=== PATIENT | female | born 1960 | race Two or more races ===

== ENCOUNTER 2016-03-27 17:21 | Inpatient (IN) | payer MEDICAID ==
[~2016-03-27] VITALS: Ht 157.5 cm; Wt 64.0 kg
[2016-03-27] MEDS ORDERED: Ampicillin/Sulbactam Sod 3 GM in NS 100 ML IV SCH (17:45)
[2016-03-27 18:24] LABS: APPEARANCE,URINE SLIGHTLY CLOUDY; KETONES,URINE 3+ (NEGATIVE); LEUKOCYTE ESTERASE ,URINE 1+ (NEGATIVE); NITRITE,URINE NEGATIVE (NEGATIVE); PH,URINE 7 (4.5-8.0); PROTEIN,URINE 2+ (NEGATIVE); UROBILINOGEN,URINE NORMAL MG/DL (0.0-1.0)
[2016-03-27 18:32] LABS: BASOPHILS % (AUTO) 0.3 % (0.0-2.0); LYMPHOCYTES % (AUTO) 8.6 % (20.0-45.0); MEAN CORPUSCULAR HGB CONC 33.9 G/DL (32.0-36.0); MEAN CORPUSCULAR VOLUME 97 FL (80-99); MEAN PLATELET VOLUME 6.6 FL (6.5-10.1); MONOCYTES % (AUTO) 6.4 % (1.0-10.0); NEUTROPHILS % (AUTO) 84.7 % (45.0-75.0); PLATELET COUNT 164 K/UL (150-450); RED BLOOD COUNT 4.84 M/UL (4.20-5.40); RED CELL DISTRIBUTION WIDTH 11.1 % (11.6-14.8); WHITE BLOOD COUNT 13.2 K/UL (4.8-10.8)
[2016-03-27 18:41] LABS: BACTERIA,URINE FEW /HPF; ICTOTEST NEGATIVE; SQUAMOUS EPITHELIAL CELL,UR MANY /LPF (NONE/OCC)
[2016-03-27] MEDS ORDERED: Unasyn 3gm Inj ONE (18:42)
[2016-03-27 19:05] LABS: TROPONIN I < 0.30 ng/mL (<=0.30)
[2016-03-27 19:09] LABS: ALANINE AMINOTRANSFERASE 30 U/L (3-33); ALBUMIN/GLOBULIN RATIO 1.1 (1.0-2.7); ANION GAP 18 (5-15); ASPARTATE AMINO TRANSFERASE 31 U/L (5-40); CALCIUM 9.6 mg/dL (8.6-10.2); CARBON DIOXIDE 27 mEQ/L (20-30); CHLORIDE 90 mEQ/L (98-107); CREATININE 0.9 mg/dL (0.5-0.9); GLOMERULAR FILTRATION RATE > 60 mL/min (>60); HEMOLYSIS 5; POTASSIUM 2.9 mEQ/L (3.4-4.9); SODIUM 135 mEQ/L (135-145); TOTAL PROTEIN 8.7 g/dL (6.6-8.7)
[2016-03-27 19:19] LABS: CKMB < 1.5 ng/mL (< 3.8)
[2016-03-27 19:23] VITALS: BP 126/62
[2016-03-27 19:31] LABS: BILIRUBIN,DIRECT 0.3 mg/dL (0.1-0.3)
[2016-03-27] MEDS ORDERED: NKM (19:38)
--- NOTE | 2016-03-27 20:50 | Emergency Room Report ---
History of Present Illness General Chief Complaint: Abdominal Pain Source: Patient Present Illness HPI Patient is a 55-year-old female presented after increased abdominal pain and vomiting. Patient reports having recent increased cough and difficulty breathing she had prior history of high cholesterol hypertension. She denied prior history of diabetes. As reported having subjective fever the patient had any hematemesis or bloody stools. She denied any chest pain. She reported having intermittent productive cough Allergies: Coded Allergies: No Known Allergies (Unverified , 03/27/16) Patient History Past Medical History: see triage record Now: No Reviewed Nursing Documentation: PMH: Agreed, PSxH: Agreed Nursing Documentation-PMH Hx Hypertension: Yes - HYPERLIPIDEMIA Review of Systems All Other Systems: negative except mentioned in HPI Physical Exam Vital Signs Date Time Temp Pulse Resp B/P Pulse Ox O2 Delivery O2 Flow Rate FiO2 03/27/16 17:27 101.7 110 26 138/69 96 03/27/16 19:23 Nasal Cannula 2.0 Sp02 EP Interpretation: reviewed, normal General Appearance: normal inspection, alert, GCS 15, moderate distress Head: atraumatic ENT: normal ENT inspection, hearing grossly normal, normal voice Neck: normal inspection, full range of motion, supple, no bony tend Respiratory: normal inspection, no respiratory distress, no retraction, accessory muscle use, wheezing Cardiovascular #1: regular rate, rhythm, no edema Gastrointestinal: normal inspection, normal bowel sounds, non tender, soft, no guarding, no hernia Genitourinary: no CVA tenderness Musculoskeletal: normal inspection, back normal, normal range of motion Neurologic: normal inspection, alert, oriented x3, responsive, copy preparer III-XII nml as tested, motor strength/tone normal, speech normal Psychiatric: normal inspection, judgement/insight normal, mood/affect normal Skin: normal inspection, normal color, no rash Medical Decision Making Diagnostic Impression: Primary Impression: Pneumonia Additional Impressions: Left bundle branch block (LBBB) Febrile illness, acute ER Course Patient presented for abdominal pain. Differential diagnoses included ischemic bowel, appendicitis, perforated viscus, abdominal aortic aneurysm, inferior myocardial infarction, viral gastroenteritis Because of complexity of patient's case laboratory testing and imaging studies were ordered. EKG interpreted by me showed normal sinus rhythm with a left bundle branch block and a prolonged QT interval there was rate of 97 QTC 520 ms. Patient was noted to haveChest x-ray one view interpreted by me Right lower lobe infiltrate on chest x-ray noted have normal mediastinum. The patient given IV fluids as well as IV antibiotics. A troponin was noted to be negative. I given the patient's prolonged time with pain appears unlikely that this is a myocardial event Patient was given medication for fever Dr. gordon was contacted for inpatient management Labs Test 03/27/16 17:55 White Blood Count 13.2 K/UL (4.8-10.8) Red Blood Count 4.84 M/UL (4.20-5.40) Hemoglobin 16.0 G/DL (12.0-16.0) Hematocrit 47.2 % (37.0-47.0) Mean Corpuscular Volume 97 FL (80-99) Mean Corpuscular Hemoglobin 33.0 PG (27.0-31.0) Mean Corpuscular Hemoglobin Concent 33.9 G/DL (32.0-36.0) Red Cell Distribution Width 11.1 % (11.6-14.8) Platelet Count 164 K/UL (150-450) Mean Platelet Volume 6.6 FL (6.5-10.1) Neutrophils (%) (Auto) 84.7 % (45.0-75.0) Lymphocytes (%) (Auto) 8.6 % (20.0-45.0) Monocytes (%) (Auto) 6.4 % (1.0-10.0) Eosinophils (%) (Auto) 0.0 % (0.0-3.0) Basophils (%) (Auto) 0.3 % (0.0-2.0) Urine Color Arlet Urine Appearance Slightly cloudy Urine pH 7 (4.5-8.0) Urine Specific [place] 1.005 (1.005-1.035) Urine Protein 2+ (NEGATIVE) Urine Glucose (UA) Negative (NEGATIVE) Urine Ketones 3+ (NEGATIVE) Urine Occult Blood 2+ (NEGATIVE) Urine Nitrite Negative (NEGATIVE) Urine Bilirubin Negative (NEGATIVE) Urine Ictotest Negative Urine Urobilinogen Normal MG/DL (0.0-1.0) Urine Leukocyte Esterase 1+ (NEGATIVE) Urine RBC 2-4 /HPF (0 - 2) Urine WBC 5-10 /HPF (0 - 2) Urine Squamous Epithelial Cells Many /LPF (NONE/OCC) Urine Bacteria Few /HPF (NONE) Sodium Level 135 mEQ/L (135-145) Potassium Level 2.9 mEQ/L (3.4-4.9) Chloride Level 90 mEQ/L (98-107) Carbon Dioxide Level 27 mEQ/L (20-30) Anion Gap 18 (5-15) Blood Urea Nitrogen 13 mg/dL (7-23) Creatinine 0.9 mg/dL (0.5-0.9) Estimat Glomerular Filtration Rate > 60 mL/min (>60) Glucose Level 138 mg/dL (74-106) Lactic Acid Level 1.10 mmol/L (0.66-2.22) Calcium Level 9.6 mg/dL (8.6-10.2) Total Bilirubin 1.3 mg/dL (0.0-1.2) Direct Bilirubin 0.3 mg/dL (0.1-0.3) Aspartate Amino Transf (AST/SGOT) 31 U/L (5-40) Alanine Aminotransferase (ALT/SGPT) 30 U/L (3-33) Alkaline Phosphatase 112 U/L (35-104) Total Creatine Kinase 94 U/L (26-140) Creatine Kinase MB < 1.5 ng/mL (< 3.8) Creatine Kinase MB Relative Index Troponin I < 0.30 ng/mL (<=0.30) Total Protein 8.7 g/dL (6.6-8.7) Albumin 4.6 g/dL (3.5-5.2) Globulin 4.1 g/dL Albumin/Globulin Ratio 1.1 (1.0-2.7) EKG Diagnostic Results Rhythm: NSR ST Segments: other - left bundle branch block Chest X-Ray Diagnostic Results EP Interpretation: Yes Findings: no effusion, no pneumothorax, no acute cardiopulmonary disease, other - right lower lobe infiltrate Number of Views: 1 Last Vital Signs Date Time Temp Pulse Resp B/P Pulse Ox O2 Delivery O2 Flow Rate FiO2 03/27/16 19:23 101.0 91 23 126/62 95 Nasal Cannula 2.0 Status: unchanged Disposition: ADMITTED INPATIENT Condition: Serious Referrals: [facility] (PCP) Adam De La Torre Mar 27, 2016 20:50
[2016-03-27 21:17] VITALS: BP 113/47
[2016-03-27 22:00] VITALS: BP 141/83
[2016-03-27] MEDS ORDERED: Mylanta II UD 30ml ORAL PRN (22:30)
[2016-03-27] MEDS ORDERED: Morphine Sulfate 2mg/ml Inj IVP PRN (22:30)
[2016-03-27] MEDS ORDERED: Nitroglycerin Subl 0.4mg tab (Bottle Of 25) SL PRN (22:30)
[2016-03-27] MEDS ORDERED: Miralax 17gm pkt ORAL PRN (22:30)
[2016-03-28] VITALS: BP 120/73
[2016-03-28] MEDS: D5 1/2NS 1,000 ML IV SCH ×3 (00:24→18:37)
[2016-03-28] MEDS ORDERED: Zosyn 3.375gm inj ONE (00:41)
[2016-03-28 04:00] VITALS: BP 107/57
[2016-03-28 05:54] LABS: BASOPHILS % (AUTO) 0.5 % (0.0-2.0); EOSINOPHILS % (AUTO) 0.1 % (0.0-3.0); LYMPHOCYTES % (AUTO) 11.2 % (20.0-45.0); MEAN CORPUSCULAR HEMOGLOBIN 33.3 PG (27.0-31.0); MEAN CORPUSCULAR HGB CONC 33.5 G/DL (32.0-36.0); MEAN CORPUSCULAR VOLUME 99 FL (80-99); MEAN PLATELET VOLUME 6.9 FL (6.5-10.1); MONOCYTES % (AUTO) 6.5 % (1.0-10.0); NEUTROPHILS % (AUTO) 81.8 % (45.0-75.0); PLATELET COUNT 154 K/UL (150-450); RED BLOOD COUNT 4.07 M/UL (4.20-5.40); RED CELL DISTRIBUTION WIDTH 10.9 % (11.6-14.8); WHITE BLOOD COUNT 11.3 K/UL (4.8-10.8)
[2016-03-28 06:36] LABS: CARBON DIOXIDE 23 mEQ/L (20-30); CHLORIDE 101 mEQ/L (98-107); POTASSIUM 3.2 mEQ/L (3.4-4.9); SODIUM 140 mEQ/L (135-145)
[2016-03-28 06:37] LABS: ALANINE AMINOTRANSFERASE 21 U/L (3-33); ALBUMIN/GLOBULIN RATIO 0.9 (1.0-2.7); AMYLASE 28 U/L (10-110); ANION GAP 16 (5-15); ASPARTATE AMINO TRANSFERASE 23 U/L (5-40); CALCIUM 8.6 mg/dL (8.6-10.2); CREATININE 0.9 mg/dL (0.5-0.9); GLOMERULAR FILTRATION RATE > 60 mL/min (>60); HEMOLYSIS 2; LIPASE 13 U/L (< 60); TOTAL PROTEIN 7.1 g/dL (6.6-8.7)
[2016-03-28 07:15] LABS: BILIRUBIN,DIRECT 0.3 mg/dL (0.1-0.3)
[2016-03-28 08:00] VITALS: BP 132/64
[2016-03-28] MEDS ORDERED: Heparin 5000 units/ml inj SUBQ SCH (09:00)
--- NOTE | 2016-03-28 11:12 | Diagnostic Imaging Report ---
Indication: Dyspnea Comparison: None A single view chest radiograph was obtained. Findings: Infiltrate suspected at the right lung base. Please correlate clinically. Mild cardio megaly is present. Bones are unremarkable. Impression: Suspected mild right basilar pneumonia. Please correlate clinically
--- NOTE | 2016-03-28 11:53 | History and Physical ---
History of Present Illness General Date patient seen: Mar 28, 2016 Reason for Hospitalization: Abdominal Pain Present Illness HPI 55-year-old female with Hx of HTN, presented after increased abdominal pain and vomiting. Patient reports having recent increased cough and difficulty breathing. She reported having intermittent productive cough. Her cxr showed RLL infiltrate. Her EKG was abnormal as well, therefore she was admitted to [facility]. Allergies: Coded Allergies: No Known Allergies (Unverified , 03/27/16) Medication History Scheduled No Known Medications* (NKM - No Known Medications*), 0 ., (Reported) Patient History Healthcare decision maker Resuscitation status Full Code Advanced Directive on File No Past Medical/Surgical History Past Medical/Surgical History: (1) Hypertension Review of Systems All Other Systems: negative except mentioned in HPI Physical Exam General Appearance: WD/WN, alert Lines, tubes and drains: peripheral, central line HEENT: normocephalic, atraumatic Neck: non-tender, normal alignment Respiratory/Chest: chest wall non-tender, lungs clear Cardiovascular/Chest: normal peripheral pulses, normal rate Abdomen: normal bowel sounds, non tender Genitourinary/Rectal: normal genital exam, normal rectal exam Extremities: normal range of motion 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 Last 24 Hour Vital Signs Date Time Temp Pulse Resp B/P Pulse Ox O2 Delivery O2 Flow Rate FiO2 03/28/16 08:00 98.4 81 22 132/64 90 Room Air 03/28/16 08:00 85 03/28/16 04:00 97.7 68 20 107/57 93 Room Air 03/28/16 03:41 65 03/28/16 00:00 98.1 76 18 120/73 93 Room Air 03/27/16 23:45 82 03/27/16 22:00 99.9 80 14 141/83 93 Room Air 03/27/16 21:31 100.2 82 25 113/47 95 Nasal Cannula 2.0 03/27/16 21:17 100.2 82 25 113/47 95 Nasal Cannula 2.0 03/27/16 20:25 100.2 03/27/16 19:23 101.0 91 23 126/62 95 Nasal Cannula 2.0 03/27/16 17:27 101.7 110 26 138/69 96 Intake and Output 03/27/16 03/28/16 19:00 07:00 Intake Total 1393.75 ml Output Total 0 ml Balance 1393.75 ml IV Total 1393.75 ml Output Urine Total 0 ml Laboratory Tests Test 03/27/16 17:55 03/28/16 04:00 White Blood Count 13.2 K/UL (4.8-10.8) H 11.3 K/UL (4.8-10.8) H Red Blood Count 4.84 M/UL (4.20-5.40) 4.07 M/UL (4.20-5.40) L Hemoglobin 16.0 G/DL (12.0-16.0) 13.6 G/DL (12.0-16.0) Hematocrit 47.2 % (37.0-47.0) H 40.5 % (37.0-47.0) Mean Corpuscular Volume 97 FL (80-99) 99 FL (80-99) Mean Corpuscular Hemoglobin 33.0 PG (27.0-31.0) H 33.3 PG (27.0-31.0) H Mean Corpuscular Hemoglobin Concent 33.9 G/DL (32.0-36.0) 33.5 G/DL (32.0-36.0) Red Cell Distribution Width 11.1 % (11.6-14.8) L 10.9 % (11.6-14.8) L Platelet Count 164 K/UL (150-450) 154 K/UL (150-450) Mean Platelet Volume 6.6 FL (6.5-10.1) 6.9 FL (6.5-10.1) Neutrophils (%) (Auto) 84.7 % (45.0-75.0) H 81.8 % (45.0-75.0) H Lymphocytes (%) (Auto) 8.6 % (20.0-45.0) L 11.2 % (20.0-45.0) L Monocytes (%) (Auto) 6.4 % (1.0-10.0) 6.5 % (1.0-10.0) Eosinophils (%) (Auto) 0.0 % (0.0-3.0) 0.1 % (0.0-3.0) Basophils (%) (Auto) 0.3 % (0.0-2.0) 0.5 % (0.0-2.0) Urine Color Arlet Urine Appearance Slightly cloudy Urine pH 7 (4.5-8.0) Urine Specific [place] 1.005 (1.005-1.035) Urine Protein 2+ (NEGATIVE) H Urine Glucose (UA) Negative (NEGATIVE) Urine Ketones 3+ (NEGATIVE) H Urine Occult Blood 2+ (NEGATIVE) H Urine Nitrite Negative (NEGATIVE) Urine Bilirubin Negative (NEGATIVE) Urine Ictotest Negative Urine Urobilinogen Normal MG/DL (0.0-1.0) Urine Leukocyte Esterase 1+ (NEGATIVE) H Urine RBC 2-4 /HPF (0 - 2) H Urine WBC 5-10 /HPF (0 - 2) H Urine Squamous Epithelial Cells Many /LPF (NONE/OCC) H Urine Bacteria Few /HPF (NONE) Sodium Level 135 mEQ/L (135-145) 140 mEQ/L (135-145) Potassium Level 2.9 mEQ/L (3.4-4.9) L 3.2 mEQ/L (3.4-4.9) L Chloride Level 90 mEQ/L (98-107) L 101 mEQ/L (98-107) Carbon Dioxide Level 27 mEQ/L (20-30) 23 mEQ/L (20-30) Anion Gap 18 (5-15) H 16 (5-15) H Blood Urea Nitrogen 13 mg/dL (7-23) 14 mg/dL (7-23) Creatinine 0.9 mg/dL (0.5-0.9) 0.9 mg/dL (0.5-0.9) Estimat Glomerular Filtration Rate > 60 mL/min (>60) > 60 mL/min (>60) Glucose Level 138 mg/dL (74-106) H 83 mg/dL (74-106) Lactic Acid Level 1.10 mmol/L (0.66-2.22) Calcium Level 9.6 mg/dL (8.6-10.2) 8.6 mg/dL (8.6-10.2) Total Bilirubin 1.3 mg/dL (0.0-1.2) H 1.1 mg/dL (0.0-1.2) Direct Bilirubin 0.3 mg/dL (0.1-0.3) 0.3 mg/dL (0.1-0.3) Aspartate Amino Transf (AST/SGOT) 31 U/L (5-40) 23 U/L (5-40) Alanine Aminotransferase (ALT/SGPT) 30 U/L (3-33) 21 U/L (3-33) Alkaline Phosphatase 112 U/L (35-104) H 134 U/L (35-104) H Total Creatine Kinase 94 U/L (26-140) Creatine Kinase MB < 1.5 ng/mL (< 3.8) Creatine Kinase MB Relative Index Troponin I < 0.30 ng/mL (<=0.30) Total Protein 8.7 g/dL (6.6-8.7) 7.1 g/dL (6.6-8.7) Albumin 4.6 g/dL (3.5-5.2) 3.4 g/dL (3.5-5.2) L Globulin 4.1 g/dL 3.7 g/dL Albumin/Globulin Ratio 1.1 (1.0-2.7) 0.9 (1.0-2.7) L Activated Partial Thromboplast Time 32 SEC (23-33) Amylase Level 28 U/L (10-110) Lipase 13 U/L (< 60) Microbiology Date/Time Source Procedure Growth Status 03/27/16 17:55 Nasal Nares Influenza Types A,B Antigen (MEAGN) - Final Complete Height (Feet): 5 Height (Inches): 2.00 Weight (Pounds): 141 Medications Current Medications Medications (Trade) Dose Ordered Sig/Adwoa Route PRN Reason Start Time Stop Time Status Last Admin Dose Admin Acetaminophen (Tylenol) 650 mg Q4H PRN ORAL fever 03/27/16 22:30 04/26/16 22:29 03/28/16 08:39 Al Hydroxide/Mg Hydroxide (Mylanta II) 30 ml Q6H PRN ORAL dyspepsia 03/27/16 22:30 04/26/16 22:29 Dextrose STAT PRN IV Hypoglycemia 03/27/16 22:30 04/26/16 22:29 Dextrose/Sodium Chloride (D5 0.45% NS) 1,000 ml @ 75 mls/hr [id number] IV 03/27/16 17:40 04/26/16 17:39 03/28/16 06:18 Diphenhydramine HCl (Benadryl) 25 mg Q6H PRN ORAL Itching/Pruritis 03/27/16 22:30 04/26/16 22:29 Heparin Sodium (Porcine) (Heparin 5000 units/ml) 5,000 units EVERY 12 HOURS SUBQ 03/28/16 09:00 04/27/16 08:59 03/28/16 08:25 Morphine Sulfate (Morphine Sulfate) 2 mg Q4H PRN IVP severe Pain (Pain Scale 7-10) 03/27/16 22:30 04/03/16 22:29 Nitroglycerin (Ntg) 0.4 mg Q5M X 3 DOSES PRN SL Prn Chest Pain 03/27/16 22:30 04/26/16 22:29 Ondansetron HCl (Zofran) 4 mg Q6H PRN IVP Nausea & Vomiting 03/27/16 22:30 04/26/16 22:29 Piperacillin Sod/ Tazobactam Sod 3.375 gm/Sodium Chloride 100 ml @ 25 mls/hr Q8H IVPB 03/28/16 00:30 04/04/16 00:29 03/28/16 08:21 Polyethylene Glycol (Miralax) 17 gm HSPRN PRN ORAL Constipation 03/27/16 22:30 04/26/16 22:29 Potassium Chloride (KCl 10mEq/100ml Premix) 100 ml @ 100 mls/hr Q1H IV 03/28/16 11:45 03/28/16 14:44 UNV Temazepam (Restoril) 15 mg HSPRN PRN ORAL Insomnia 03/27/16 22:30 04/03/16 22:29 Assessment/Plan Problem List: (1) Pneumonia ICD Codes: J18.9 - Pneumonia, unspecified organism SNOMED: 726773151 (2) Intractable abdominal pain ICD Codes: R10.9 - Unspecified abdominal pain SNOMED: 47231103, 511591080 (3) Hypertension ICD Codes: I10 - Essential (primary) hypertension SNOMED: 70766141 Qualifiers: Qualified Codes: I10 - Essential (primary) hypertension Assessment/Plan NPO IV antibiotics chest PT check sputum DEBORA PEREZ Mar 28, 2016 11:53
[2016-03-28 12:00] VITALS: BP 124/80
[2016-03-28] MEDS ORDERED: HYDROCHLOROTH12.5 M2 ORAL (12:21)
[2016-03-28] MEDS ORDERED: LIPITOR40 MG ORAL (12:21)
--- NOTE | 2016-03-28 13:00 | GI Initial Consult Note ---
History of Present Illness General Date patient seen: Mar 28, 2016 Time patient seen: 11:00 Reason for Hospitalization: Abdominal Pain Referring physician: DEBORA EUGENE Reason for Consultation: ABDOMINAL PAIN Present Illness HPI Patient is a 55-year-old female presented after increased abdominal pain and vomiting. Patient reports having recent increased cough and difficulty breathing she had prior history of high cholesterol hypertension. She denied prior history of diabetes. As reported having subjective fever the patient had any hematemesis or bloody stools. She denied any chest pain. She reported having intermittent productive cough GI NOTE: HPI as noted above. Pt seen on floor, awake A&Ox4 NAD. Stated she originally had some abdominal pain, but c/o of no pain at this time. Denies any vomiting or diarrhea. Denied any history of any endoscopic procedures. Pt also p/w with leukocytosis and hypoalbuminemia. CXR shows possible right basilar pneumonia. Home Meds Reported Medications Atorvastatin Calcium* (LIPITOR*) 40 Mg Tablet, 40 MG ORAL DAILY, TAB 03/28/16 Hydrochlorothiazide* (HYDROCHLOROTHIAZIDE*) 12.5 Mg Capsule, 12.5 MG ORAL DAILY , CAP 03/28/16 No Known Medications* (NKM - No Known Medications*) ., 0 ., 0 Refills 03/27/16 Med list reviewed/reconciled: Yes Allergies: Coded Allergies: No Known Allergies (Unverified , 03/27/16) Patient History History Provided By: Patient, Medical Record PMH Narrative Past Medical History: see triage record Now: No Reviewed Nursing Documentation: PMH: Agreed, PSxH: Agreed Nursing Documentation-PMH Hx Hypertension: Yes - HYPERLIPIDEMIA Review of Systems All Other Systems: negative except mentioned in HPI Physical Exam Vital Signs Date Time Temp Pulse Resp B/P Pulse Ox O2 Delivery O2 Flow Rate FiO2 03/27/16 17:27 101.7 110 26 138/69 96 03/27/16 19:23 Nasal Cannula 2.0 Sp02 EP Interpretation: reviewed Labs Laboratory Tests Test 03/27/16 17:55 03/28/16 04:00 White Blood Count 13.2 K/UL (4.8-10.8) H 11.3 K/UL (4.8-10.8) H Red Blood Count 4.84 M/UL (4.20-5.40) 4.07 M/UL (4.20-5.40) L Hemoglobin 16.0 G/DL (12.0-16.0) 13.6 G/DL (12.0-16.0) Hematocrit 47.2 % (37.0-47.0) H 40.5 % (37.0-47.0) Mean Corpuscular Volume 97 FL (80-99) 99 FL (80-99) Mean Corpuscular Hemoglobin 33.0 PG (27.0-31.0) H 33.3 PG (27.0-31.0) H Mean Corpuscular Hemoglobin Concent 33.9 G/DL (32.0-36.0) 33.5 G/DL (32.0-36.0) Red Cell Distribution Width 11.1 % (11.6-14.8) L 10.9 % (11.6-14.8) L Platelet Count 164 K/UL (150-450) 154 K/UL (150-450) Mean Platelet Volume 6.6 FL (6.5-10.1) 6.9 FL (6.5-10.1) Neutrophils (%) (Auto) 84.7 % (45.0-75.0) H 81.8 % (45.0-75.0) H Lymphocytes (%) (Auto) 8.6 % (20.0-45.0) L 11.2 % (20.0-45.0) L Monocytes (%) (Auto) 6.4 % (1.0-10.0) 6.5 % (1.0-10.0) Eosinophils (%) (Auto) 0.0 % (0.0-3.0) 0.1 % (0.0-3.0) Basophils (%) (Auto) 0.3 % (0.0-2.0) 0.5 % (0.0-2.0) Urine Color Arlet Urine Appearance Slightly cloudy Urine pH 7 (4.5-8.0) Urine Specific [place] 1.005 (1.005-1.035) Urine Protein 2+ (NEGATIVE) H Urine Glucose (UA) Negative (NEGATIVE) Urine Ketones 3+ (NEGATIVE) H Urine Occult Blood 2+ (NEGATIVE) H Urine Nitrite Negative (NEGATIVE) Urine Bilirubin Negative (NEGATIVE) Urine Ictotest Negative Urine Urobilinogen Normal MG/DL (0.0-1.0) Urine Leukocyte Esterase 1+ (NEGATIVE) H Urine RBC 2-4 /HPF (0 - 2) H Urine WBC 5-10 /HPF (0 - 2) H Urine Squamous Epithelial Cells Many /LPF (NONE/OCC) H Urine Bacteria Few /HPF (NONE) Sodium Level 135 mEQ/L (135-145) 140 mEQ/L (135-145) Potassium Level 2.9 mEQ/L (3.4-4.9) L 3.2 mEQ/L (3.4-4.9) L Chloride Level 90 mEQ/L (98-107) L 101 mEQ/L (98-107) Carbon Dioxide Level 27 mEQ/L (20-30) 23 mEQ/L (20-30) Anion Gap 18 (5-15) H 16 (5-15) H Blood Urea Nitrogen 13 mg/dL (7-23) 14 mg/dL (7-23) Creatinine 0.9 mg/dL (0.5-0.9) 0.9 mg/dL (0.5-0.9) Estimat Glomerular Filtration Rate > 60 mL/min (>60) > 60 mL/min (>60) Glucose Level 138 mg/dL (74-106) H 83 mg/dL (74-106) Lactic Acid Level 1.10 mmol/L (0.66-2.22) Calcium Level 9.6 mg/dL (8.6-10.2) 8.6 mg/dL (8.6-10.2) Total Bilirubin 1.3 mg/dL (0.0-1.2) H 1.1 mg/dL (0.0-1.2) Direct Bilirubin 0.3 mg/dL (0.1-0.3) 0.3 mg/dL (0.1-0.3) Aspartate Amino Transf (AST/SGOT) 31 U/L (5-40) 23 U/L (5-40) Alanine Aminotransferase (ALT/SGPT) 30 U/L (3-33) 21 U/L (3-33) Alkaline Phosphatase 112 U/L (35-104) H 134 U/L (35-104) H Total Creatine Kinase 94 U/L (26-140) Creatine Kinase MB < 1.5 ng/mL (< 3.8) Creatine Kinase MB Relative Index Troponin I < 0.30 ng/mL (<=0.30) Total Protein 8.7 g/dL (6.6-8.7) 7.1 g/dL (6.6-8.7) Albumin 4.6 g/dL (3.5-5.2) 3.4 g/dL (3.5-5.2) L Globulin 4.1 g/dL 3.7 g/dL Albumin/Globulin Ratio 1.1 (1.0-2.7) 0.9 (1.0-2.7) L Activated Partial Thromboplast Time 32 SEC (23-33) Amylase Level 28 U/L (10-110) Lipase 13 U/L (< 60) General Appearance: well appearing, no apparent distress, alert Head: normocephalic EENT: normal ENT inspection Neck: supple Respiratory: other - 2LNC Cardiovascular: tachycardia Gastrointestinal: normal inspection, non tender, soft Neurologic: normal inspection, alert, oriented x3, responsive Psychiatric: normal inspection, judgement/insight normal, memory normal Skin: normal inspection, normal color, no rash Lymphatic: normal inspection, no adenopathy Current Medications Current Medications Medications (Trade) Dose Ordered Sig/Adwoa Route PRN Reason Start Time Stop Time Status Last Admin Dose Admin Acetaminophen (Tylenol) 650 mg Q4H PRN ORAL fever 03/27/16 22:30 04/26/16 22:29 03/28/16 08:39 Al Hydroxide/Mg Hydroxide (Mylanta II) 30 ml Q6H PRN ORAL dyspepsia 03/27/16 22:30 04/26/16 22:29 Dextrose STAT PRN IV Hypoglycemia 03/27/16 22:30 04/26/16 22:29 Dextrose/Sodium Chloride (D5 0.45% NS) 1,000 ml @ 75 mls/hr [id number] IV 03/27/16 17:40 04/26/16 17:39 03/28/16 06:18 Diphenhydramine HCl (Benadryl) 25 mg Q6H PRN ORAL Itching/Pruritis 03/27/16 22:30 04/26/16 22:29 Heparin Sodium (Porcine) (Heparin 5000 units/ml) 5,000 units EVERY 12 HOURS SUBQ 03/28/16 09:00 04/27/16 08:59 03/28/16 08:25 Morphine Sulfate (Morphine Sulfate) 2 mg Q4H PRN IVP severe Pain (Pain Scale 7-10) 03/27/16 22:30 04/03/16 22:29 Nitroglycerin (Ntg) 0.4 mg Q5M X 3 DOSES PRN SL Prn Chest Pain 03/27/16 22:30 04/26/16 22:29 Ondansetron HCl (Zofran) 4 mg Q6H PRN IVP Nausea & Vomiting 03/27/16 22:30 04/26/16 22:29 Piperacillin Sod/ Tazobactam Sod 3.375 gm/Sodium Chloride 100 ml @ 25 mls/hr Q8H IVPB 03/28/16 00:30 04/04/16 00:29 03/28/16 08:21 Polyethylene Glycol (Miralax) 17 gm HSPRN PRN ORAL Constipation 03/27/16 22:30 04/26/16 22:29 Potassium Chloride (KCl 10mEq/100ml Premix) 100 ml @ 100 mls/hr Q1H IVPB 03/28/16 12:30 03/28/16 15:29 03/28/16 12:35 Temazepam (Restoril) 15 mg HSPRN PRN ORAL Insomnia 03/27/16 22:30 04/03/16 22:29 GI: Plan Problems: (1) Hypoalbuminemia (2) Intractable abdominal pain (3) Pneumonia Plan symptomatic treatment at this time ordered Abd U/S zofran prn adv to low fat diet H2 Abx fu labs outpatient GI procedures Discussed with Dr. Johns. Thank you for referring this patient, we will follow. Lynn Wolfe N.P. Mar 28, 2016 13:00
[2016-03-28] MEDS ORDERED: Docusate 100mg cap ORAL SCH (13:30)
--- NOTE | 2016-03-28 14:06 | Consultation ---
Consult Note Consult Note ID CONSULT: Dict# [id number] Assessment/Plan ASSESSMENT: 55 y/o female with: // Probable CAP ?post-influenza - CXR: Suspected mild right basilar pneumonia. - negative: influenza // Recent URI, sick contacts // Sepsis // Leukocytosis - improved // Fever - improved // Abdominal pain, N/V - resolved - US: pending - negative/WNL: LFTs, amylase, lipase // NKDA // Full Code PLAN: - continue zosyn d# . Ok to complete course with PO levaquin at discharge - f/u cultures - f/u abdo US - f/u TTE - monitor CBC, temperatures - monitor CMP d/w family at bedside Thanks! Will follow FRANSICO WHITE Mar 28, 2016 14:06
[2016-03-28 16:03] VITALS: BP 131/64
[2016-03-28] MEDS ORDERED: D5 1/2NS 1000ml IV ONE (16:20)
[2016-03-28] MEDS ORDERED: Tubing IV Secondary IV ONE (16:20)
[2016-03-28] MEDS ORDERED: Nitroglycerin Subl 0.4mg tab (Bottle Of 25) SL PRN (17:30)
[2016-03-28] MEDS ORDERED: Morphine Sulfate 2mg/ml Inj IVP PRN (18:30)
[2016-03-28] MEDS: Docusate 100mg cap ORAL SCH (18:37)
--- NOTE | 2016-03-28 19:13 | Cardiology Progress Note ---
Assessment/Plan Assessment/Plan pneumonia lbbb ? chronicity peluritic chest pian will review echo abx hhn will follwo thank you Objective Last 24 Hour Vital Signs Date Time Temp Pulse Resp B/P Pulse Ox O2 Delivery O2 Flow Rate FiO2 03/28/16 16:03 98.8 88 17 131/64 94 Room Air 03/28/16 12:00 97.7 79 16 124/80 92 Room Air 03/28/16 08:00 98.4 81 22 132/64 90 Room Air 03/28/16 08:00 85 03/28/16 04:00 97.7 68 20 107/57 93 Room Air 03/28/16 03:41 65 03/28/16 00:00 98.1 76 18 120/73 93 Room Air 03/27/16 23:45 82 03/27/16 22:00 99.9 80 14 141/83 93 Room Air 03/27/16 21:31 100.2 82 25 113/47 95 Nasal Cannula 2.0 03/27/16 21:17 100.2 82 25 113/47 95 Nasal Cannula 2.0 03/27/16 20:25 100.2 03/27/16 19:23 101.0 91 23 126/62 95 Nasal Cannula 2.0 Intake and Output 03/27/16 03/28/16 19:00 07:00 Intake Total 1393.75 ml Output Total 0 ml Balance 1393.75 ml IV Total 1393.75 ml Output Urine Total 0 ml Laboratory Tests Test 03/28/16 04:00 White Blood Count 11.3 K/UL (4.8-10.8) H Red Blood Count 4.07 M/UL (4.20-5.40) L Hemoglobin 13.6 G/DL (12.0-16.0) Hematocrit 40.5 % (37.0-47.0) Mean Corpuscular Volume 99 FL (80-99) Mean Corpuscular Hemoglobin 33.3 PG (27.0-31.0) H Mean Corpuscular Hemoglobin Concent 33.5 G/DL (32.0-36.0) Red Cell Distribution Width 10.9 % (11.6-14.8) L Platelet Count 154 K/UL (150-450) Mean Platelet Volume 6.9 FL (6.5-10.1) Neutrophils (%) (Auto) 81.8 % (45.0-75.0) H Lymphocytes (%) (Auto) 11.2 % (20.0-45.0) L Monocytes (%) (Auto) 6.5 % (1.0-10.0) Eosinophils (%) (Auto) 0.1 % (0.0-3.0) Basophils (%) (Auto) 0.5 % (0.0-2.0) Activated Partial Thromboplast Time 32 SEC (23-33) Sodium Level 140 mEQ/L (135-145) Potassium Level 3.2 mEQ/L (3.4-4.9) L Chloride Level 101 mEQ/L (98-107) Carbon Dioxide Level 23 mEQ/L (20-30) Anion Gap 16 (5-15) H Blood Urea Nitrogen 14 mg/dL (7-23) Creatinine 0.9 mg/dL (0.5-0.9) Estimat Glomerular Filtration Rate > 60 mL/min (>60) Glucose Level 83 mg/dL (74-106) Calcium Level 8.6 mg/dL (8.6-10.2) Total Bilirubin 1.1 mg/dL (0.0-1.2) Direct Bilirubin 0.3 mg/dL (0.1-0.3) Aspartate Amino Transf (AST/SGOT) 23 U/L (5-40) Alanine Aminotransferase (ALT/SGPT) 21 U/L (3-33) Alkaline Phosphatase 134 U/L (35-104) H Total Protein 7.1 g/dL (6.6-8.7) Albumin 3.4 g/dL (3.5-5.2) L Globulin 3.7 g/dL Albumin/Globulin Ratio 0.9 (1.0-2.7) L Amylase Level 28 U/L (10-110) Lipase 13 U/L (< 60) Microbiology Date/Time Source Procedure Growth Status 03/27/16 17:55 Nasal Nares Influenza Types A,B Antigen (MEGAN) - Final Complete ROSE MARY NAYAK Mar 28, 2016 19:13
[2016-03-28 20:00] VITALS: BP 132/75
[2016-03-28] MEDS: Heparin 5000 units/ml inj SUBQ SCH (20:55)
[2016-03-28] MEDS ORDERED: Famotidine 20 MG/ 2ML VIAL IVP SCH (21:00)
[2016-03-28] MEDS: Famotidine 20 MG/ 2ML VIAL IVP SCH (22:04)
[2016-03-28] MEDS ORDERED: Miralax 17gm pkt ORAL PRN (22:30)
[2016-03-28] MEDS ORDERED: Mylanta II UD 30ml ORAL PRN (22:30)
--- NOTE | 2016-03-28 22:48 | Consultation ---
DATE OF CONSULTATION: 03/28/2016 INFECTIOUS DISEASE CONSULTATION REQUESTING PHYSICIAN: Benoit Lugo M.D. REASON FOR CONSULTATION: Pneumonia. HISTORY OF PRESENT ILLNESS: This is a 55-year-old, female, admitted on 03/27/2016 with abdominal pain, nausea, vomiting, cough, and subjective fevers. The patient reports recent upper respiratory tract infection from what she had initially improved and is now worsening. Her daughter is also sick with upper respiratory symptoms. An influenza screen is negative and chest x-ray shows a suspected right basilar pneumonia. She meets sepsis criteria. Leukocytosis and fevers are improving. Her abdominal pain, nausea, and vomiting has now resolved. LFTs, amylase, and lipase are within normal limits. An abdominal ultrasound is pending. She has been started on empiric Zosyn and ID now consulted to assist in management. PAST MEDICAL HISTORY: 1. Hypertension. 2. Hyperlipidemia. PAST SURGICAL HISTORY: None. ALLERGIES: No known drug allergies. MEDICATIONS: 1. Zosyn day #1. 2. Pepcid. 3. Subcutaneous heparin. FAMILY HISTORY: Noncontributory. SOCIAL HISTORY: The patient lives locally with family. She has positive sick contacts. REVIEW OF SYSTEMS: As per history of present illness. Ten systems reviewed. All pertinent positives and negatives noted. PHYSICAL EXAMINATION: VITAL SIGNS: Maximum temperature 101.7 degrees, blood pressure 124/80, heart rate in the 70s, respiratory rate 16, and saturating 92% on room air. GENERAL: No apparent distress. Nontoxic appearing. CARDIOVASCULAR: Regular rate and rhythm. No murmurs. PULMONARY: Clear to auscultation bilaterally. ABDOMEN: Bowel sounds present. Soft, nondistended, and nontender. EXTREMITIES: No edema. SKIN: No rash. LABORATORY DATA: White blood cell count 11.3 decreased from 13.2, hemoglobin 13.6, and platelets 154,000. Sodium 140, potassium 3.2, chloride 101, bicarbonate 23, BUN 14, and creatinine 0.9. Lactic acid is 1.1. AST 23, ALT 21, and alkaline phosphatase 134. Total bilirubin is 1.1. Albumin is 3.4. Amylase and lipase are within normal limits. Troponin is negative x1. MICROBIOLOGY: 1. On 03/27/2016, influenza screen negative. 2. On 03/27/2016, blood culture pending. IMAGIN. On 03/27/2016, chest x-ray suspected mild right basilar pneumonia. 2. On 03/28/2016, echocardiogram pending. 3. On 03/28/2016, abdominal ultrasound pending. ASSESSMENT: 1. Probable community-acquired pneumonia, question post influenza. Chest x-ray showed suspected mild right basilar pneumonia and influenza screen is negative. 2. Recent upper respiratory infection and sick contacts, question of influenza. 3. Sepsis. 4. Leukocytosis, improved. 5. Fever, improved. 6. Abdominal pain, nausea and vomiting, now resolved. Liver function tests, amylase and lipase are within normal limits. An abdominal ultrasound is pending. 7. No known drug allergies. 8. Full Code. PLAN: 1. Continue Zosyn day #1 of 7. Okay to complete course with oral Levaquin at discharge. 2. Follow up cultures. 3. Follow up abdominal ultrasound. 4. Follow up echocardiogram. 5. Monitor CBC and temperatures. 6. Monitor CMP. 7. Discussed with family at bedside. Thank you. We will follow. aMrvin oNrth M.D. DR: SHANNON JOB#: [id number] CC: Benoit Lugo M.D.; Fax#: [phone] Montes M.D; Fax#: [phone]
[2016-03-29] VITALS (7 sets, daily range): BP systolic 118–147; BP diastolic 58–87
--- NOTE | 2016-03-29 04:28 | Consultation ---
DATE OF CONSULTATION: 03/28/2016 CARDIOLOGY CONSULTATION CONSULTING PHYSICIAN: Abraham Coates M.D. REFERRING PHYSICIAN: Benoit Lugo M.D. REASON FOR CONSULTATION: Abnormal EKG. HISTORY OF PRESENT ILLNESS: This is a 55-year-old female, who presented to the hospital because of shortness of breath. Basically, she has had a cold with coughing, fever, chills, and not feeling well and eventually presented to emergency room at [facility]. She also has some abdominal pain and vomiting. Her coughing has been increasing and she developed some shortness of breath. She has pain in the left side of her chest when she takes a deep breath or coughs, much more so than when she walks. She has no palpitations. No dizziness or lightheadedness. She uses one pillow. Does have sometimes shortness of breath on exertion. She does occasionally wake up in the middle of the night because of shortness of breath, sits up in bed, and then eventually goes back to bed after taking some few breaths. PAST MEDICAL HISTORY: Negative for diabetes. Positive for high blood pressure. No history of heart attack. She has a high cholesterol. No heart attack, cancer, stroke, hepatitis, or tuberculosis. No asthma. No emphysema. No ulcers. No kidney problems or liver problems, thyroid problems, anemia, or arthritis. ALLERGIES: She has no known drug allergies. SOCIAL HISTORY: She does smoke, but quit that approximately three weeks ago. She drinks alcoholic beverages occasionally. No drug use. REVIEW OF SYSTEMS: Gastrointestinal: She has had nausea and vomiting as mentioned. Genitourinary: Negative. Pulmonary: Positive as mentioned in history of present illness. Constitutional: Positive as mentioned in history of present illness. Neurologic: Negative. PHYSICAL EXAMINATION: GENERAL: Shows to be a middle-aged female, in no respiratory distress. She seems to have some nasal discharge that she constantly clears with tissues. LUNGS: There are some crackles noted in the left base and some rhonchi noted. CARDIOVASCULAR: Regular rate and rhythm. No heaves, thrills, or gallops noted. ABDOMEN: Soft and nontender. Positive bowel sounds. EXTREMITIES: There is no edema. She has varicosities in the lower extremities bilaterally. LABORATORY AND DIAGNOSTIC VALUES: White count of 11.3, down from 13.2 with hemoglobin 13.6, and platelet count of 154,000. Sodium is 140, potassium 3.2, chloride 101, bicarbonate 23, BUN 14, creatinine 0.9, and glucose of 83, down from 138. Lactic acid is 1.1 and alkaline phosphate is 134. Her albumin is 3.4. Her coags, PTT of 32. Urinalysis, 5 to 10 WBCs and 2 to 4 RBCs. Her chest x-ray performed in the emergency room shows right basilar pneumonia being documented. EKG shows left bundle-branch conduction defect with secondary ST segment changes. ASSESSMENT: 1. Pneumonia. 2. Left bundle-branch conduction defect. 3. Chest pain, pleuritic in nature. PLAN: Dr. Lugo, this patient was seen in cardiac consultation. The patient with electrocardiogram as noted. Unfortunately, not known if this is a new finding for her or not. She had been noted to have some kind of abnormalities on the physical examination that the primary care doctor wants to refer her for evaluation by brand marketing intern that was supposed to occur this month, but has not yet been established. The patient has had an echocardiogram, preliminary reports the ejection fraction of 50%. This will be reviewed shortly. Further recommendation depending on the findings. I suspect based on the findings that she may actually have a developing infiltrate on the left side much more so than on the right side based on the findings. I consider repeating chest x-ray for further evaluation, possibly in the next day or so. Dr. Lugo, thank you for allowing me to participate in the care of this patient. Abraham Coates M.D. DR: GITA JOB#: [id number] CC:
[2016-03-29 07:40] LABS: BASOPHILS % (AUTO) 0.3 % (0.0-2.0); EOSINOPHILS % (AUTO) 0.6 % (0.0-3.0); LYMPHOCYTES % (AUTO) 17.3 % (20.0-45.0); MEAN CORPUSCULAR HEMOGLOBIN 32.5 PG (27.0-31.0); MEAN CORPUSCULAR HGB CONC 32.5 G/DL (32.0-36.0); MEAN CORPUSCULAR VOLUME 100 FL (80-99); MEAN PLATELET VOLUME 6.5 FL (6.5-10.1); MONOCYTES % (AUTO) 7.1 % (1.0-10.0); NEUTROPHILS % (AUTO) 74.7 % (45.0-75.0); PLATELET COUNT 191 K/UL (150-450); RED BLOOD COUNT 4.08 M/UL (4.20-5.40); WHITE BLOOD COUNT 7.5 K/UL (4.8-10.8)
[2016-03-29 08:00] LABS: ALANINE AMINOTRANSFERASE 20 U/L (3-33); ANION GAP 16 (5-15); ASPARTATE AMINO TRANSFERASE 22 U/L (5-40); CALCIUM 8.9 mg/dL (8.6-10.2); CARBON DIOXIDE 24 mEQ/L (20-30); CHLORIDE 105 mEQ/L (98-107); CREATININE 0.8 mg/dL (0.5-0.9); GLOMERULAR FILTRATION RATE > 60 mL/min (>60); HEMOLYSIS 0; MAGNESIUM 2.2 mg/dL (1.7-2.5); PHOSPHORUS 2.6 mg/dL (2.5-4.8); POTASSIUM 3.3 mEQ/L (3.4-4.9); SODIUM 145 mEQ/L (135-145)
[2016-03-29 08:18] LABS: CHOLESTEROL/HDL RATIO 2.3 (3.3-4.4)
[2016-03-29] MEDS: D5 1/2NS 1,000 ML IV SCH (08:20)
[2016-03-29] MEDS: Heparin 5000 units/ml inj SUBQ SCH (08:29)
[2016-03-29] MEDS: Famotidine 20 MG/ 2ML VIAL IVP SCH (08:29)
[2016-03-29] MEDS: Docusate 100mg cap ORAL SCH ×3 (08:30→17:11)
[2016-03-29] MEDS ORDERED: Promethazine/Codeine 5ml UD ORAL PRN (09:00)
--- NOTE | 2016-03-29 11:21 | GI Progress Note ---
Assessment/Plan Problems: (1) Hypoalbuminemia ICD Codes: E88.09 - Other disorders of plasma-protein metabolism, not elsewhere classified SNOMED: 734335372 (2) Intractable abdominal pain ICD Codes: R10.9 - Unspecified abdominal pain SNOMED: 18103576, 872888668 (3) Febrile illness, acute ICD Codes: R50.9 - Fever, unspecified SNOMED: 599458975 (4) Pneumonia ICD Codes: J18.9 - Pneumonia, unspecified organism SNOMED: 290735124 Status: unchanged Status Narrative Discussed with Dr. Johns. Assessment/Plan symptomatic treatment at this time fu Abd U/S zofran prn low fat diet H2 Abx fu labs outpatient GI procedures Subjective Gastrointestinal/Abdominal: Reports: no symptoms Objective Last 24 Hour Vital Signs Date Time Temp Pulse Resp B/P Pulse Ox O2 Delivery O2 Flow Rate FiO2 03/29/16 08:38 98.2 80 20 142/77 92 Room Air 03/29/16 04:00 97.9 71 18 128/78 95 Room Air 03/29/16 00:00 98.1 78 20 118/58 96 Room Air 03/28/16 21:53 98.8 03/28/16 20:00 99.9 90 21 132/75 94 Room Air 03/28/16 16:03 98.8 88 17 131/64 94 Room Air 03/28/16 12:00 97.7 79 16 124/80 92 Room Air Intake and Output 03/28/16 03/29/16 19:00 07:00 Intake Total 1580 ml 1285 ml Balance 1580 ml 1285 ml Intake Oral 830 ml 325 ml IV Total 750 ml 960 ml # Voids 2 2 # Bowel Movements 1 Laboratory Tests Test 03/29/16 05:10 White Blood Count 7.5 K/UL (4.8-10.8) Red Blood Count 4.08 M/UL (4.20-5.40) L Hemoglobin 13.2 G/DL (12.0-16.0) Hematocrit 40.8 % (37.0-47.0) Mean Corpuscular Volume 100 FL (80-99) H Mean Corpuscular Hemoglobin 32.5 PG (27.0-31.0) H Mean Corpuscular Hemoglobin Concent 32.5 G/DL (32.0-36.0) Red Cell Distribution Width 11.0 % (11.6-14.8) L Platelet Count 191 K/UL (150-450) Mean Platelet Volume 6.5 FL (6.5-10.1) Neutrophils (%) (Auto) 74.7 % (45.0-75.0) Lymphocytes (%) (Auto) 17.3 % (20.0-45.0) L Monocytes (%) (Auto) 7.1 % (1.0-10.0) Eosinophils (%) (Auto) 0.6 % (0.0-3.0) Basophils (%) (Auto) 0.3 % (0.0-2.0) Sodium Level 145 mEQ/L (135-145) Potassium Level 3.3 mEQ/L (3.4-4.9) L Chloride Level 105 mEQ/L (98-107) Carbon Dioxide Level 24 mEQ/L (20-30) Anion Gap 16 (5-15) H Blood Urea Nitrogen 7 mg/dL (7-23) Creatinine 0.8 mg/dL (0.5-0.9) Estimat Glomerular Filtration Rate > 60 mL/min (>60) Glucose Level 112 mg/dL (74-106) H Calcium Level 8.9 mg/dL (8.6-10.2) Phosphorus Level 2.6 mg/dL (2.5-4.8) Magnesium Level 2.2 mg/dL (1.7-2.5) Total Bilirubin 0.6 mg/dL (0.0-1.2) Aspartate Amino Transf (AST/SGOT) 22 U/L (5-40) Alanine Aminotransferase (ALT/SGPT) 20 U/L (3-33) Alkaline Phosphatase 134 U/L (35-104) H Pro-B-Type Natriuretic Peptide 567 pg/mL (0-125) H Total Protein 7.0 g/dL (6.6-8.7) Albumin 3.5 g/dL (3.5-5.2) Globulin 3.5 g/dL Albumin/Globulin Ratio 1.0 (1.0-2.7) Triglycerides Level 172 mg/dL (< 150) H Cholesterol Level 115 mg/dL (< 200) LDL Cholesterol 32 mg/dL (60-99) L HDL Cholesterol 49 mg/dL (> 60) Cholesterol/HDL Ratio 2.3 (3.3-4.4) L Height (Feet): 5 Height (Inches): 2.00 Weight (Pounds): 141 General Appearance: no apparent distress, alert Cardiovascular: normal rate Respiratory/Chest: normal breath sounds, no respiratory distress Abdominal Exam: normal bowel sounds, non tender, soft Extremities: normal range of motion Lynn Wolfe N.P. Mar 29, 2016 11:21
--- NOTE | 2016-03-29 11:27 | Diagnostic Imaging Report ---
Indications: Chest pain Technique: Portable AP chest Findings: Comparison: 03/27/16 Cardiomegaly, right lung base patchy opacity persist, unchanged. No new abnormality identified. IMPRESSION: No change from 2 days prior
--- NOTE | 2016-03-29 17:42 | Infectious Diseases Prog Note ---
Assessment/Plan Assessment/Plan ASSESSMENT: 55 y/o female with: // Probable CAP ?post-influenza - CXR 03/29: Suspected mild right basilar pneumonia, unchanged - negative: influenza // Recent URI, sick contacts // Sepsis SP // Leukocytosis - resolved // Fever - resolved // Abdominal pain, N/V - resolved - US: pending - negative/WNL: LFTs, amylase, lipase // NKDA // Full Code PLAN: - ok to DC on PO levquin x5 day from ID standpoint. Will continue zosyn d# 2 / 7 while still inpt - f/u cultures - f/u abdo US - f/u TTE - monitor CBC, temperatures - monitor CMP Subjective Allergies: Coded Allergies: No Known Allergies (Unverified , 03/27/16) Subjective fevers resolved Objective Vital Signs Last 24 Hour Vital Signs Date Time Temp Pulse Resp B/P Pulse Ox O2 Delivery O2 Flow Rate FiO2 03/29/16 16:32 99.0 82 20 140/84 97 Room Air 03/29/16 16:00 99.9 88 21 139/87 96 Room Air 03/29/16 12:08 97.7 87 20 135/84 94 Room Air 03/29/16 08:38 98.2 80 20 142/77 92 Room Air 03/29/16 04:00 97.9 71 18 128/78 95 Room Air 03/29/16 00:00 98.1 78 20 118/58 96 Room Air 03/28/16 21:53 98.8 03/28/16 20:00 99.9 90 21 132/75 94 Room Air Height (Feet): 5 Height (Inches): 2.00 Weight (Pounds): 141 General Appearance: no acute distress Respiratory/Chest: no respiratory distress Cardiovascular: normal rate, regular rhythm Abdomen: normal bowel sounds, soft, non tender, non distended Microbiology Date/Time Source Procedure Growth Status 03/27/16 18:00 Blood Blood Culture - Preliminary NO GROWTH AFTER 24 HOURS Resulted 03/27/16 17:45 Blood Blood Culture - Preliminary NO GROWTH AFTER 24 HOURS Resulted 03/27/16 17:55 Nasal Nares Influenza Types A,B Antigen (MEGAN) - Final Complete Laboratory Tests Test 03/29/16 05:10 White Blood Count 7.5 K/UL (4.8-10.8) Red Blood Count 4.08 M/UL (4.20-5.40) L Hemoglobin 13.2 G/DL (12.0-16.0) Hematocrit 40.8 % (37.0-47.0) Mean Corpuscular Volume 100 FL (80-99) H Mean Corpuscular Hemoglobin 32.5 PG (27.0-31.0) H Mean Corpuscular Hemoglobin Concent 32.5 G/DL (32.0-36.0) Red Cell Distribution Width 11.0 % (11.6-14.8) L Platelet Count 191 K/UL (150-450) Mean Platelet Volume 6.5 FL (6.5-10.1) Neutrophils (%) (Auto) 74.7 % (45.0-75.0) Lymphocytes (%) (Auto) 17.3 % (20.0-45.0) L Monocytes (%) (Auto) 7.1 % (1.0-10.0) Eosinophils (%) (Auto) 0.6 % (0.0-3.0) Basophils (%) (Auto) 0.3 % (0.0-2.0) Sodium Level 145 mEQ/L (135-145) Potassium Level 3.3 mEQ/L (3.4-4.9) L Chloride Level 105 mEQ/L (98-107) Carbon Dioxide Level 24 mEQ/L (20-30) Anion Gap 16 (5-15) H Blood Urea Nitrogen 7 mg/dL (7-23) Creatinine 0.8 mg/dL (0.5-0.9) Estimat Glomerular Filtration Rate > 60 mL/min (>60) Glucose Level 112 mg/dL (74-106) H Calcium Level 8.9 mg/dL (8.6-10.2) Phosphorus Level 2.6 mg/dL (2.5-4.8) Magnesium Level 2.2 mg/dL (1.7-2.5) Total Bilirubin 0.6 mg/dL (0.0-1.2) Aspartate Amino Transf (AST/SGOT) 22 U/L (5-40) Alanine Aminotransferase (ALT/SGPT) 20 U/L (3-33) Alkaline Phosphatase 134 U/L (35-104) H Pro-B-Type Natriuretic Peptide 567 pg/mL (0-125) H Total Protein 7.0 g/dL (6.6-8.7) Albumin 3.5 g/dL (3.5-5.2) Globulin 3.5 g/dL Albumin/Globulin Ratio 1.0 (1.0-2.7) Triglycerides Level 172 mg/dL (< 150) H Cholesterol Level 115 mg/dL (< 200) LDL Cholesterol 32 mg/dL (60-99) L HDL Cholesterol 49 mg/dL (> 60) Cholesterol/HDL Ratio 2.3 (3.3-4.4) L Current Medications Medications (Trade) Dose Ordered Sig/Adwoa Route PRN Reason Start Time Stop Time Status Last Admin Dose Admin Acetaminophen (Tylenol) 650 mg Q4H PRN ORAL fever 03/28/16 18:30 04/27/16 18:29 03/28/16 20:54 Al Hydroxide/Mg Hydroxide (Mylanta II) 30 ml Q6H PRN ORAL dyspepsia 03/28/16 22:30 04/27/16 22:29 Dextrose (Dextrose 50%) STAT PRN IV Hypoglycemia 03/28/16 22:30 04/27/16 22:29 Diphenhydramine HCl (Benadryl) 25 mg Q6H PRN ORAL Itching/Pruritis 03/28/16 22:30 04/27/16 22:29 Docusate Sodium (Colace) 100 mg THREE TIMES A DAY ORAL 03/28/16 18:00 04/27/16 17:59 03/29/16 12:33 Famotidine (Pepcid I.v.) 20 mg Q12HR IVP 03/28/16 21:00 04/27/16 20:59 03/29/16 08:29 Heparin Sodium (Porcine) (Heparin 5000 units/ml) 5,000 units EVERY 12 HOURS SUBQ 03/28/16 21:00 04/27/16 20:59 03/29/16 08:29 Morphine Sulfate (Morphine Sulfate) 2 mg Q4H PRN IVP severe Pain (Pain Scale 7-10) 03/28/16 18:30 04/04/16 18:29 Nitroglycerin (Ntg) 0.4 mg Q5M X 3 DOSES PRN SL Prn Chest Pain 03/28/16 17:30 04/27/16 17:29 Ondansetron HCl (Zofran) 4 mg Q6H PRN IVP Nausea & Vomiting 03/28/16 22:30 04/27/16 22:29 Piperacillin Sod/ Tazobactam Sod/ Sodium Chloride (Zosyn/Sodium Chloride 100ml bag) 100 ml @ 25 mls/hr Q8H IVPB 03/29/16 00:30 04/05/16 00:29 03/29/16 17:09 Polyethylene Glycol (Miralax) 17 gm HSPRN PRN ORAL Constipation 03/28/16 22:30 04/27/16 22:29 Promethazine HCl/ Codeine (Phenergan with Codeine) 5 ml Q4H PRN ORAL For Cough 03/29/16 09:00 04/28/16 08:59 03/29/16 10:24 Temazepam (Restoril) 15 mg HSPRN PRN ORAL Insomnia 03/28/16 22:30 04/04/16 22:29 FRANSICO WHITE Mar 29, 2016 17:42
--- NOTE | 2016-03-29 17:51 | Cardiology Report ---
APPROVED REPORT EKG Measurement Heart [id number] Normal sinus rhythm Left bundle branch block Abnormal ECG
--- NOTE | 2016-03-29 18:17 | Pulmonology Progress Note ---
Assessment/Plan Problems: (1) Pneumonia (2) Ventricular mural thrombus (3) Left bundle branch block (4) Hypertension (5) Intractable abdominal pain Assessment/Plan Iv antibiotics d/w , will be started on Heparin and coumadin continue antibiotics f/u sputum Subjective ROS Limited/Unobtainable: No Interval Events: doing better Allergies: Coded Allergies: No Known Allergies (Unverified , 03/27/16) Objective Last 24 Hour Vital Signs Date Time Temp Pulse Resp B/P Pulse Ox O2 Delivery O2 Flow Rate FiO2 03/29/16 16:32 99.0 82 20 140/84 97 Room Air 03/29/16 16:00 99.9 88 21 139/87 96 Room Air 03/29/16 12:08 97.7 87 20 135/84 94 Room Air 03/29/16 08:38 98.2 80 20 142/77 92 Room Air 03/29/16 04:00 97.9 71 18 128/78 95 Room Air 03/29/16 00:00 98.1 78 20 118/58 96 Room Air 03/28/16 21:53 98.8 03/28/16 20:00 99.9 90 21 132/75 94 Room Air Intake and Output 03/28/16 03/29/16 19:00 07:00 Intake Total 1580 ml 1285 ml Balance 1580 ml 1285 ml Intake Oral 830 ml 325 ml IV Total 750 ml 960 ml # Voids 2 2 # Bowel Movements 1 General Appearance: WD/WN HEENT: normocephalic, atraumatic Respiratory/Chest: chest wall non-tender, lungs clear Abdomen: normal bowel sounds, no organomegaly Extremities: no cyanosis Neurologic/Psychiatric: supervisor shaving and splitting II-XII grossly normal Microbiology Date/Time Source Procedure Growth Status 03/27/16 18:00 Blood Blood Culture - Preliminary NO GROWTH AFTER 24 HOURS Resulted 03/27/16 17:45 Blood Blood Culture - Preliminary NO GROWTH AFTER 24 HOURS Resulted 03/27/16 17:55 Nasal Nares Influenza Types A,B Antigen (MEGAN) - Final Complete Laboratory Tests 03/29/16 05:10: White Blood Count 7.5, Red Blood Count 4.08L, Hemoglobin 13.2, Hematocrit 40.8, Mean Corpuscular Volume 100H, Mean Corpuscular Hemoglobin 32.5H, Mean Corpuscular Hemoglobin Concent 32.5, Red Cell Distribution Width 11.0L, Platelet Count 191, Mean Platelet Volume 6.5, Neutrophils (%) (Auto) 74.7, Lymphocytes (%) (Auto) 17.3L, Monocytes (%) (Auto) 7.1, Eosinophils (%) (Auto) 0.6, Basophils (%) (Auto) 0.3, Sodium Level 145, Potassium Level 3.3L, Chloride Level 105, Carbon Dioxide Level 24, Anion Gap 16H, Blood Urea Nitrogen 7, Creatinine 0.8, Estimat Glomerular Filtration Rate > 60, Glucose Level 112H, Calcium Level 8.9, Phosphorus Level 2.6, Magnesium Level 2.2, Total Bilirubin 0.6, Aspartate Amino Transf (AST/SGOT) 22, Alanine Aminotransferase (ALT/SGPT) 20, Alkaline Phosphatase 134H, Pro-B-Type Natriuretic Peptide 567H, Total Protein 7.0, Albumin 3.5, Globulin 3.5, Albumin/Globulin Ratio 1.0, Triglycerides Level 172H, Cholesterol Level 115, LDL Cholesterol 32L, HDL Cholesterol 49, Cholesterol/HDL Ratio 2.3L Current Medications Medications (Trade) Dose Ordered Sig/Adwoa Route PRN Reason Start Time Stop Time Status Last Admin Dose Admin Acetaminophen (Tylenol) 650 mg Q4H PRN ORAL fever 03/28/16 18:30 04/27/16 18:29 03/28/16 20:54 Al Hydroxide/Mg Hydroxide (Mylanta II) 30 ml Q6H PRN ORAL dyspepsia 03/28/16 22:30 04/27/16 22:29 Dextrose (Dextrose 50%) STAT PRN IV Hypoglycemia 03/28/16 22:30 04/27/16 22:29 Diphenhydramine HCl (Benadryl) 25 mg Q6H PRN ORAL Itching/Pruritis 03/28/16 22:30 04/27/16 22:29 Docusate Sodium (Colace) 100 mg THREE TIMES A DAY ORAL 03/28/16 18:00 04/27/16 17:59 03/29/16 12:33 Famotidine (Pepcid I.v.) 20 mg Q12HR IVP 03/28/16 21:00 04/27/16 20:59 03/29/16 08:29 Heparin Sodium (Porcine) (Heparin 5000 units/ml) 5,000 units EVERY 12 HOURS SUBQ 03/28/16 21:00 04/27/16 20:59 03/29/16 08:29 Morphine Sulfate (Morphine Sulfate) 2 mg Q4H PRN IVP severe Pain (Pain Scale 7-10) 03/28/16 18:30 04/04/16 18:29 Nitroglycerin (Ntg) 0.4 mg Q5M X 3 DOSES PRN SL Prn Chest Pain 03/28/16 17:30 04/27/16 17:29 Ondansetron HCl (Zofran) 4 mg Q6H PRN IVP Nausea & Vomiting 03/28/16 22:30 04/27/16 22:29 Piperacillin Sod/ Tazobactam Sod/ Sodium Chloride (Zosyn/Sodium Chloride 100ml bag) 100 ml @ 25 mls/hr Q8H IVPB 03/29/16 00:30 04/05/16 00:29 03/29/16 17:09 Polyethylene Glycol (Miralax) 17 gm HSPRN PRN ORAL Constipation 03/28/16 22:30 04/27/16 22:29 Promethazine HCl/ Codeine (Phenergan with Codeine) 5 ml Q4H PRN ORAL For Cough 03/29/16 09:00 04/28/16 08:59 03/29/16 10:24 Temazepam (Restoril) 15 mg HSPRN PRN ORAL Insomnia 03/28/16 22:30 04/04/16 22:29 DEBORA PEREZ Mar 29, 2016 18:17
--- NOTE | 2016-03-29 18:24 | Cardiology Progress Note ---
Assessment/Plan Assessment/Plan 1. Pneumonia. 2. Left bundle-branch conduction defect. 3. Chest pain, pleuritic in nature. 4. Increased apical echoes on tranthoracic echo thrombus cannot be excluded echo personally reviewed remains difficult to rule out apical thrombus the risk of cva with a possible untreated apical LV thrombus is much higher and potentially more devastating than the risk of anticoagualtion it is my opion that she should be temporarily treated with anticoagualtion as outpt she will need to have a contrast echo to further evaluate the apical area adn to see if need sto continue anticoagualtion. contrast echo is not avaialbe at this hospital i have discussed this with pt and her family at bedside she has not had any bleeding anywhere i have explained need to have fu with gravity meter observer and the issue with interaction with food and other meds to pt and dtr at bedside adn the need to be vigilant to avoid fall and to look for blood form any orifice and to go to e.r. if occurs d/w dr hooper Subjective Cardiovascular: Denies: chest pain, lightheadedness Respiratory: Reports: cough, shortness of breath Gastrointestinal/Abdominal: Denies: abdominal pain Genitourinary: Denies: burning Objective Last 24 Hour Vital Signs Date Time Temp Pulse Resp B/P Pulse Ox O2 Delivery O2 Flow Rate FiO2 03/29/16 16:32 99.0 82 20 140/84 97 Room Air 03/29/16 16:00 99.9 88 21 139/87 96 Room Air 03/29/16 12:08 97.7 87 20 135/84 94 Room Air 03/29/16 08:38 98.2 80 20 142/77 92 Room Air 03/29/16 04:00 97.9 71 18 128/78 95 Room Air 03/29/16 00:00 98.1 78 20 118/58 96 Room Air 03/28/16 21:53 98.8 03/28/16 20:00 99.9 90 21 132/75 94 Room Air General Appearance: no apparent distress, alert Neck: no JVD Cardiovascular: normal rate, regular rhythm Respiratory/Chest: rhonchi - left, expiratory wheezing Abdomen: normal bowel sounds, non tender, soft Extremities: no swelling Intake and Output 03/28/16 03/29/16 19:00 07:00 Intake Total 1580 ml 1285 ml Balance 1580 ml 1285 ml Intake Oral 830 ml 325 ml IV Total 750 ml 960 ml # Voids 2 2 # Bowel Movements 1 Laboratory Tests Test 03/29/16 05:10 White Blood Count 7.5 K/UL (4.8-10.8) Red Blood Count 4.08 M/UL (4.20-5.40) L Hemoglobin 13.2 G/DL (12.0-16.0) Hematocrit 40.8 % (37.0-47.0) Mean Corpuscular Volume 100 FL (80-99) H Mean Corpuscular Hemoglobin 32.5 PG (27.0-31.0) H Mean Corpuscular Hemoglobin Concent 32.5 G/DL (32.0-36.0) Red Cell Distribution Width 11.0 % (11.6-14.8) L Platelet Count 191 K/UL (150-450) Mean Platelet Volume 6.5 FL (6.5-10.1) Neutrophils (%) (Auto) 74.7 % (45.0-75.0) Lymphocytes (%) (Auto) 17.3 % (20.0-45.0) L Monocytes (%) (Auto) 7.1 % (1.0-10.0) Eosinophils (%) (Auto) 0.6 % (0.0-3.0) Basophils (%) (Auto) 0.3 % (0.0-2.0) Sodium Level 145 mEQ/L (135-145) Potassium Level 3.3 mEQ/L (3.4-4.9) L Chloride Level 105 mEQ/L (98-107) Carbon Dioxide Level 24 mEQ/L (20-30) Anion Gap 16 (5-15) H Blood Urea Nitrogen 7 mg/dL (7-23) Creatinine 0.8 mg/dL (0.5-0.9) Estimat Glomerular Filtration Rate > 60 mL/min (>60) Glucose Level 112 mg/dL (74-106) H Calcium Level 8.9 mg/dL (8.6-10.2) Phosphorus Level 2.6 mg/dL (2.5-4.8) Magnesium Level 2.2 mg/dL (1.7-2.5) Total Bilirubin 0.6 mg/dL (0.0-1.2) Aspartate Amino Transf (AST/SGOT) 22 U/L (5-40) Alanine Aminotransferase (ALT/SGPT) 20 U/L (3-33) Alkaline Phosphatase 134 U/L (35-104) H Pro-B-Type Natriuretic Peptide 567 pg/mL (0-125) H Total Protein 7.0 g/dL (6.6-8.7) Albumin 3.5 g/dL (3.5-5.2) Globulin 3.5 g/dL Albumin/Globulin Ratio 1.0 (1.0-2.7) Triglycerides Level 172 mg/dL (< 150) H Cholesterol Level 115 mg/dL (< 200) LDL Cholesterol 32 mg/dL (60-99) L HDL Cholesterol 49 mg/dL (> 60) Cholesterol/HDL Ratio 2.3 (3.3-4.4) L Microbiology Date/Time Source Procedure Growth Status 03/27/16 18:00 Blood Blood Culture - Preliminary NO GROWTH AFTER 24 HOURS Resulted 03/27/16 17:45 Blood Blood Culture - Preliminary NO GROWTH AFTER 24 HOURS Resulted 03/27/16 17:55 Nasal Nares Influenza Types A,B Antigen (MEGAN) - Final Complete ROSE MARY NAYAK Mar 29, 2016 18:24
[2016-03-29] MEDS ORDERED: Heparin 5000 units/ml inj IV ONE (19:00)
[2016-03-29 19:04] LABS: BASOPHILS % (AUTO) 0.4 % (0.0-2.0); EOSINOPHILS % (AUTO) 0.4 % (0.0-3.0); LYMPHOCYTES % (AUTO) 25.8 % (20.0-45.0); MEAN CORPUSCULAR HEMOGLOBIN 33.3 PG (27.0-31.0); MEAN CORPUSCULAR HGB CONC 33.9 G/DL (32.0-36.0); MEAN CORPUSCULAR VOLUME 98 FL (80-99); MEAN PLATELET VOLUME 6.8 FL (6.5-10.1); NEUTROPHILS % (AUTO) 66.4 % (45.0-75.0); PLATELET COUNT 216 K/UL (150-450); RED CELL DISTRIBUTION WIDTH 11.5 % (11.6-14.8); WHITE BLOOD COUNT 7.6 K/UL (4.8-10.8)
[2016-03-29 19:15] LABS: PROTHROMBIN TIME 9.7 SEC (9.30-11.50)
[2016-03-29] MEDS ORDERED: Warfarin Sodium 7.5mg ORAL ONE (20:30)
[2016-03-30 00:06] VITALS: BP 161/86
[2016-03-30] MEDS: Heparin 25,000u/D5W 500ml 500 ML IV SCH ×2 (00:47→20:16)
[2016-03-30] MEDS: Famotidine 20 MG/ 2ML VIAL IVP SCH ×3 (00:59→20:15)
[2016-03-30 04:05] VITALS: BP 151/92
[2016-03-30 04:31] LABS: BASOPHILS % (AUTO) 0.6 % (0.0-2.0); EOSINOPHILS % (AUTO) 0.7 % (0.0-3.0); LYMPHOCYTES % (AUTO) 26.5 % (20.0-45.0); MEAN CORPUSCULAR HEMOGLOBIN 32.7 PG (27.0-31.0); MEAN CORPUSCULAR HGB CONC 31.8 G/DL (32.0-36.0); MEAN CORPUSCULAR VOLUME 103 FL (80-99); MEAN PLATELET VOLUME 6.7 FL (6.5-10.1); MONOCYTES % (AUTO) 6.8 % (1.0-10.0); NEUTROPHILS % (AUTO) 65.5 % (45.0-75.0); PLATELET COUNT 226 K/UL (150-450); RED BLOOD COUNT 4.11 M/UL (4.20-5.40); RED CELL DISTRIBUTION WIDTH 13.1 % (11.6-14.8); WHITE BLOOD COUNT 6.9 K/UL (4.8-10.8)
[2016-03-30 04:44] LABS: PROTHROMBIN TIME 10.2 SEC (9.30-11.50)
[2016-03-30 04:54] LABS: ALANINE AMINOTRANSFERASE 21 U/L (3-33); ALBUMIN/GLOBULIN RATIO 0.8 (1.0-2.7); ANION GAP 14 (5-15); ASPARTATE AMINO TRANSFERASE 18 U/L (5-40); CALCIUM 8.8 mg/dL (8.6-10.2); CARBON DIOXIDE 23 mEQ/L (20-30); CHLORIDE 106 mEQ/L (98-107); CREATININE 0.7 mg/dL (0.5-0.9); GLOMERULAR FILTRATION RATE > 60 mL/min (>60); HEMOLYSIS 2; MAGNESIUM 1.9 mg/dL (1.7-2.5); PHOSPHORUS 3.2 mg/dL (2.5-4.8); POTASSIUM 3.5 mEQ/L (3.4-4.9); SODIUM 143 mEQ/L (135-145); TOTAL PROTEIN 7.1 g/dL (6.6-8.7)
[2016-03-30 06:13] LABS: ERYTHROCYTE SEDIMENTATION RATE 100 MM/HR (0-30)
[2016-03-30 08:00] VITALS: BP 137/77
[2016-03-30 08:32] LABS: CRP QUANT 10.7 mg/dL (< 0.5)
[2016-03-30] MEDS: Docusate 100mg cap ORAL SCH ×3 (08:50→18:00)
--- NOTE | 2016-03-30 11:37 | GI Progress Note ---
Assessment/Plan Problems: (1) Hypoalbuminemia ICD Codes: E88.09 - Other disorders of plasma-protein metabolism, not elsewhere classified SNOMED: 643902662 (2) Intractable abdominal pain ICD Codes: R10.9 - Unspecified abdominal pain SNOMED: 41267067, 270087746 (3) Febrile illness, acute ICD Codes: R50.9 - Fever, unspecified SNOMED: 041765733 (4) Pneumonia ICD Codes: J18.9 - Pneumonia, unspecified organism SNOMED: 359423059 Status: stable Status Narrative Discussed with Dr. Johns. Assessment/Plan symptomatic treatment at this time fu Abd U/S zofran prn low fat diet H2 Abx heparin gtt fu labs outpatient GI procedures Subjective Gastrointestinal/Abdominal: Reports: no symptoms Objective Last 24 Hour Vital Signs Date Time Temp Pulse Resp B/P Pulse Ox O2 Delivery O2 Flow Rate FiO2 03/30/16 08:00 88 03/30/16 08:00 98.2 82 17 137/77 93 Room Air 03/30/16 04:45 66 03/30/16 04:05 98.4 80 19 151/92 95 Room Air 03/30/16 00:06 97.0 84 18 161/86 94 Room Air 03/30/16 00:00 79 03/29/16 20:00 79 03/29/16 20:00 99.5 89 20 147/82 94 Room Air 03/29/16 16:32 99.0 82 20 140/84 97 Room Air 03/29/16 16:00 99.9 88 21 139/87 96 Room Air 03/29/16 12:08 97.7 87 20 135/84 94 Room Air Intake and Output 03/29/16 03/30/16 18:59 06:59 Intake Total 1140 ml 481.175 ml Balance 1140 ml 481.175 ml Intake Oral 830 ml 120 ml IV Total 310 ml 361.175 ml # Voids 4 2 # Bowel Movements 1 Laboratory Tests Test 03/29/16 18:45 03/30/16 04:00 White Blood Count 7.6 K/UL (4.8-10.8) 6.9 K/UL (4.8-10.8) Red Blood Count 4.10 M/UL (4.20-5.40) L 4.11 M/UL (4.20-5.40) L Hemoglobin 13.7 G/DL (12.0-16.0) 13.5 G/DL (12.0-16.0) Hematocrit 40.3 % (37.0-47.0) 42.4 % (37.0-47.0) Mean Corpuscular Volume 98 FL (80-99) 103 FL (80-99) H Mean Corpuscular Hemoglobin 33.3 PG (27.0-31.0) H 32.7 PG (27.0-31.0) H Mean Corpuscular Hemoglobin Concent 33.9 G/DL (32.0-36.0) 31.8 G/DL (32.0-36.0) L Red Cell Distribution Width 11.5 % (11.6-14.8) L 13.1 % (11.6-14.8) Platelet Count 216 K/UL (150-450) 226 K/UL (150-450) Mean Platelet Volume 6.8 FL (6.5-10.1) 6.7 FL (6.5-10.1) Neutrophils (%) (Auto) 66.4 % (45.0-75.0) 65.5 % (45.0-75.0) Lymphocytes (%) (Auto) 25.8 % (20.0-45.0) 26.5 % (20.0-45.0) Monocytes (%) (Auto) 7.0 % (1.0-10.0) 6.8 % (1.0-10.0) Eosinophils (%) (Auto) 0.4 % (0.0-3.0) 0.7 % (0.0-3.0) Basophils (%) (Auto) 0.4 % (0.0-2.0) 0.6 % (0.0-2.0) Prothrombin Time 9.7 SEC (9.30-11.50) 10.2 SEC (9.30-11.50) Prothromb Time International Ratio 1.0 (0.9-1.1) 1.0 (0.9-1.1) Erythrocyte Sedimentation Rate 100 MM/HR (0-30) H Activated Partial Thromboplast Time 75 SEC (23-33) H Sodium Level 143 mEQ/L (135-145) Potassium Level 3.5 mEQ/L (3.4-4.9) Chloride Level 106 mEQ/L (98-107) Carbon Dioxide Level 23 mEQ/L (20-30) Anion Gap 14 (5-15) Blood Urea Nitrogen 6 mg/dL (7-23) L Creatinine 0.7 mg/dL (0.5-0.9) Estimat Glomerular Filtration Rate > 60 mL/min (>60) Glucose Level 104 mg/dL (74-106) Calcium Level 8.8 mg/dL (8.6-10.2) Phosphorus Level 3.2 mg/dL (2.5-4.8) Magnesium Level 1.9 mg/dL (1.7-2.5) Total Bilirubin 0.5 mg/dL (0.0-1.2) Aspartate Amino Transf (AST/SGOT) 18 U/L (5-40) Alanine Aminotransferase (ALT/SGPT) 21 U/L (3-33) Alkaline Phosphatase 109 U/L (35-104) H C-Reactive Protein, Quantitative 10.7 mg/dL (< 0.5) H Total Protein 7.1 g/dL (6.6-8.7) Albumin 3.3 g/dL (3.5-5.2) L Globulin 3.8 g/dL Albumin/Globulin Ratio 0.8 (1.0-2.7) L Height (Feet): 5 Height (Inches): 2.00 Weight (Pounds): 141 General Appearance: no apparent distress, alert Cardiovascular: normal rate Respiratory/Chest: normal breath sounds, no respiratory distress Abdominal Exam: normal bowel sounds, non tender, soft Lynn Wolfe N.Robel Mar 30, 2016 11:37
[2016-03-30 12:04] VITALS: BP 129/83
--- NOTE | 2016-03-30 13:14 | Pulmonology Progress Note ---
Assessment/Plan Problems: (1) Pneumonia (2) Ventricular mural thrombus (3) Left bundle branch block (4) Hypertension (5) Intractable abdominal pain Assessment/Plan Iv antibiotics d/w , will be started on Heparin and coumadin continue antibiotics need soutpatient f/u with electrical systems engineer f/u sputum coumadine started Subjective ROS Limited/Unobtainable: No Constitutional: Reports: no symptoms HEENT: Repors: no symptoms Respiratory: Reports: no symptoms Allergies: Coded Allergies: No Known Allergies (Unverified , 03/27/16) Objective Last 24 Hour Vital Signs Date Time Temp Pulse Resp B/P Pulse Ox O2 Delivery O2 Flow Rate FiO2 03/30/16 12:04 96.9 70 17 129/83 95 Room Air 03/30/16 08:00 88 03/30/16 08:00 98.2 82 17 137/77 93 Room Air 03/30/16 04:45 66 03/30/16 04:05 98.4 80 19 151/92 95 Room Air 03/30/16 00:06 97.0 84 18 161/86 94 Room Air 03/30/16 00:00 79 03/29/16 20:00 79 03/29/16 20:00 99.5 89 20 147/82 94 Room Air 03/29/16 16:32 99.0 82 20 140/84 97 Room Air 03/29/16 16:00 99.9 88 21 139/87 96 Room Air Intake and Output 03/29/16 03/30/16 19:00 07:00 Intake Total 1090 ml 456.175 ml Balance 1090 ml 456.175 ml Intake Oral 830 ml 120 ml IV Total 260 ml 336.175 ml # Voids 4 2 # Bowel Movements 1 General Appearance: WD/WN HEENT: normocephalic, atraumatic Respiratory/Chest: chest wall non-tender, lungs clear Cardiovascular: normal peripheral pulses, normal rate Abdomen: normal bowel sounds, soft, non tender Genitourinary: normal external genitalia Extremities: no clubbing Neurologic/Psychiatric: zipper setter lockstitch II-XII grossly normal Microbiology Date/Time Source Procedure Growth Status 03/27/16 18:00 Blood Blood Culture - Preliminary NO GROWTH AFTER 48 HOURS Resulted 03/27/16 17:45 Blood Blood Culture - Preliminary NO GROWTH AFTER 48 HOURS Resulted 03/27/16 17:55 Nasal Nares Influenza Types A,B Antigen (MEGAN) - Final Complete Laboratory Tests 03/29/16 18:45: White Blood Count 7.6, Red Blood Count 4.10L, Hemoglobin 13.7, Hematocrit 40.3, Mean Corpuscular Volume 98, Mean Corpuscular Hemoglobin 33.3H, Mean Corpuscular Hemoglobin Concent 33.9, Red Cell Distribution Width 11.5L, Platelet Count 216, Mean Platelet Volume 6.8, Neutrophils (%) (Auto) 66.4, Lymphocytes (%) (Auto) 25.8, Monocytes (%) (Auto) 7.0, Eosinophils (%) (Auto) 0.4, Basophils (%) (Auto ) 0.4, Prothrombin Time 9.7, Prothromb Time International Ratio 1.0 03/30/16 04:00: White Blood Count 6.9, Red Blood Count 4.11L, Hemoglobin 13.5, Hematocrit 42.4, Mean Corpuscular Volume 103H, Mean Corpuscular Hemoglobin 32.7H, Mean Corpuscular Hemoglobin Concent 31.8L, Red Cell Distribution Width 13.1, Platelet Count 226, Mean Platelet Volume 6.7, Neutrophils (%) (Auto) 65.5, Lymphocytes (%) (Auto) 26.5, Monocytes (%) (Auto) 6.8, Eosinophils (%) (Auto) 0.7, Basophils (%) (Auto) 0.6, Prothrombin Time 10.2, Prothromb Time International Ratio 1.0, Erythrocyte Sedimentation Rate 100H, Activated Partial Thromboplast Time 75H, Sodium Level 143, Potassium Level 3.5, Chloride Level 106 , Carbon Dioxide Level 23, Anion Gap 14, Blood Urea Nitrogen 6L, Creatinine 0.7 , Estimat Glomerular Filtration Rate > 60, Glucose Level 104, Calcium Level 8.8 , Phosphorus Level 3.2, Magnesium Level 1.9, Total Bilirubin 0.5, Aspartate Amino Transf (AST/SGOT) 18, Alanine Aminotransferase (ALT/SGPT) 21, Alkaline Phosphatase 109H, C-Reactive Protein, Quantitative 10.7H, Total Protein 7.1, Albumin 3.3L, Globulin 3.8, Albumin/Globulin Ratio 0.8L Current Medications Medications (Trade) Dose Ordered Sig/Adwoa Route PRN Reason Start Time Stop Time Status Last Admin Dose Admin Acetaminophen (Tylenol) 650 mg Q4H PRN ORAL fever 03/28/16 18:30 04/27/16 18:29 03/28/16 20:54 Al Hydroxide/Mg Hydroxide (Mylanta II) 30 ml Q6H PRN ORAL dyspepsia 03/28/16 22:30 04/27/16 22:29 Dextrose (Dextrose 50%) STAT PRN IV Hypoglycemia 03/28/16 22:30 04/27/16 22:29 Diphenhydramine HCl (Benadryl) 25 mg Q6H PRN ORAL Itching/Pruritis 03/28/16 22:30 04/27/16 22:29 Docusate Sodium (Colace) 100 mg THREE TIMES A DAY ORAL 03/28/16 18:00 04/27/16 17:59 03/30/16 12:28 Famotidine (Pepcid I.v.) 20 mg Q12HR IVP 03/30/16 00:00 04/29/16 00:00 03/30/16 08:51 Heparin Sodium/ Dextrose (Heparin) 500 ml @ 23.025 mls/ hr adjust per protocol IV 03/29/16 19:00 04/28/16 18:59 03/30/16 00:47 Morphine Sulfate (Morphine Sulfate) 2 mg Q4H PRN IVP severe Pain (Pain Scale 7-10) 03/28/16 18:30 04/04/16 18:29 Nitroglycerin (Ntg) 0.4 mg Q5M X 3 DOSES PRN SL Prn Chest Pain 03/28/16 17:30 04/27/16 17:29 Ondansetron HCl (Zofran) 4 mg Q6H PRN IVP Nausea & Vomiting 03/28/16 22:30 04/27/16 22:29 Piperacillin Sod/ Tazobactam Sod/ Sodium Chloride (Zosyn/Sodium Chloride 100ml bag) 100 ml @ 25 mls/hr Q8H IVPB 03/29/16 00:30 04/05/16 00:29 03/30/16 08:50 Polyethylene Glycol (Miralax) 17 gm HSPRN PRN ORAL Constipation 03/28/16 22:30 04/27/16 22:29 Promethazine HCl/ Codeine 5 ml 5 ml Q4H PRN ORAL For Cough 03/29/16 09:00 2/9/17 08:59 03/29/16 10:24 Temazepam (Restoril) 15 mg HSPRN PRN ORAL Insomnia 03/28/16 22:30 04/04/16 22:29 Warfarin Sodium (Coumadin per pharmacy) 1 ea DAILY PRN MISC Per rx protocol 03/29/16 18:30 04/28/16 18:29 Warfarin Sodium (Coumadin) 5 mg COUMADIN ORAL 03/30/16 17:00 03/30/16 17:01 DEBORA PEREZ Mar 30, 2016 13:14
--- NOTE | 2016-03-30 14:34 | Infectious Diseases Prog Note ---
Assessment/Plan Assessment/Plan ASSESSMENT: 55 y/o female with: // Probable CAP ?post-influenza - CXR 03/29: Suspected mild right basilar pneumonia, unchanged - negative: influenza // Recent URI, sick contacts // Sepsis SP // Leukocytosis - resolved // Fever - resolved // Probable LV thrombus // Abdominal pain, N/V - resolved - US: pending - negative/WNL: LFTs, amylase, lipase // NKDA // Full Code PLAN: - ok to DC on PO levquin x4 days from ID standpoint. Will continue zosyn d# 3 / 7 while still inpt - f/u final cultures - f/u abdo US - monitor CBC, temperatures - monitor CMP - anticoagulation Subjective Allergies: Coded Allergies: No Known Allergies (Unverified , 03/27/16) Subjective fevers resolved probable LV thrombus Objective Vital Signs Last 24 Hour Vital Signs Date Time Temp Pulse Resp B/P Pulse Ox O2 Delivery O2 Flow Rate FiO2 03/30/16 12:04 96.9 70 17 129/83 95 Room Air 03/30/16 08:00 88 03/30/16 08:00 98.2 82 17 137/77 93 Room Air 03/30/16 04:45 66 03/30/16 04:05 98.4 80 19 151/92 95 Room Air 03/30/16 00:06 97.0 84 18 161/86 94 Room Air 03/30/16 00:00 79 03/29/16 20:00 79 03/29/16 20:00 99.5 89 20 147/82 94 Room Air 03/29/16 16:32 99.0 82 20 140/84 97 Room Air 03/29/16 16:00 99.9 88 21 139/87 96 Room Air Height (Feet): 5 Height (Inches): 2.00 Weight (Pounds): 141 General Appearance: no acute distress Respiratory/Chest: no respiratory distress Cardiovascular: normal rate, regular rhythm Abdomen: normal bowel sounds, soft, non tender, non distended Microbiology Date/Time Source Procedure Growth Status 03/27/16 18:00 Blood Blood Culture - Preliminary NO GROWTH AFTER 48 HOURS Resulted 03/27/16 17:45 Blood Blood Culture - Preliminary NO GROWTH AFTER 48 HOURS Resulted 03/27/16 17:55 Nasal Nares Influenza Types A,B Antigen (MEGAN) - Final Complete Laboratory Tests Test 03/29/16 18:45 03/30/16 04:00 White Blood Count 7.6 K/UL (4.8-10.8) 6.9 K/UL (4.8-10.8) Red Blood Count 4.10 M/UL (4.20-5.40) L 4.11 M/UL (4.20-5.40) L Hemoglobin 13.7 G/DL (12.0-16.0) 13.5 G/DL (12.0-16.0) Hematocrit 40.3 % (37.0-47.0) 42.4 % (37.0-47.0) Mean Corpuscular Volume 98 FL (80-99) 103 FL (80-99) H Mean Corpuscular Hemoglobin 33.3 PG (27.0-31.0) H 32.7 PG (27.0-31.0) H Mean Corpuscular Hemoglobin Concent 33.9 G/DL (32.0-36.0) 31.8 G/DL (32.0-36.0) L Red Cell Distribution Width 11.5 % (11.6-14.8) L 13.1 % (11.6-14.8) Platelet Count 216 K/UL (150-450) 226 K/UL (150-450) Mean Platelet Volume 6.8 FL (6.5-10.1) 6.7 FL (6.5-10.1) Neutrophils (%) (Auto) 66.4 % (45.0-75.0) 65.5 % (45.0-75.0) Lymphocytes (%) (Auto) 25.8 % (20.0-45.0) 26.5 % (20.0-45.0) Monocytes (%) (Auto) 7.0 % (1.0-10.0) 6.8 % (1.0-10.0) Eosinophils (%) (Auto) 0.4 % (0.0-3.0) 0.7 % (0.0-3.0) Basophils (%) (Auto) 0.4 % (0.0-2.0) 0.6 % (0.0-2.0) Prothrombin Time 9.7 SEC (9.30-11.50) 10.2 SEC (9.30-11.50) Prothromb Time International Ratio 1.0 (0.9-1.1) 1.0 (0.9-1.1) Erythrocyte Sedimentation Rate 100 MM/HR (0-30) H Activated Partial Thromboplast Time 75 SEC (23-33) H Sodium Level 143 mEQ/L (135-145) Potassium Level 3.5 mEQ/L (3.4-4.9) Chloride Level 106 mEQ/L (98-107) Carbon Dioxide Level 23 mEQ/L (20-30) Anion Gap 14 (5-15) Blood Urea Nitrogen 6 mg/dL (7-23) L Creatinine 0.7 mg/dL (0.5-0.9) Estimat Glomerular Filtration Rate > 60 mL/min (>60) Glucose Level 104 mg/dL (74-106) Calcium Level 8.8 mg/dL (8.6-10.2) Phosphorus Level 3.2 mg/dL (2.5-4.8) Magnesium Level 1.9 mg/dL (1.7-2.5) Total Bilirubin 0.5 mg/dL (0.0-1.2) Aspartate Amino Transf (AST/SGOT) 18 U/L (5-40) Alanine Aminotransferase (ALT/SGPT) 21 U/L (3-33) Alkaline Phosphatase 109 U/L (35-104) H C-Reactive Protein, Quantitative 10.7 mg/dL (< 0.5) H Total Protein 7.1 g/dL (6.6-8.7) Albumin 3.3 g/dL (3.5-5.2) L Globulin 3.8 g/dL Albumin/Globulin Ratio 0.8 (1.0-2.7) L Current Medications Medications (Trade) Dose Ordered Sig/Adwoa Route PRN Reason Start Time Stop Time Status Last Admin Dose Admin Acetaminophen (Tylenol) 650 mg Q4H PRN ORAL fever 03/28/16 18:30 04/27/16 18:29 03/28/16 20:54 Al Hydroxide/Mg Hydroxide (Mylanta II) 30 ml Q6H PRN ORAL dyspepsia 03/28/16 22:30 04/27/16 22:29 Dextrose (Dextrose 50%) STAT PRN IV Hypoglycemia 03/28/16 22:30 04/27/16 22:29 Diphenhydramine HCl (Benadryl) 25 mg Q6H PRN ORAL Itching/Pruritis 03/28/16 22:30 04/27/16 22:29 Docusate Sodium (Colace) 100 mg THREE TIMES A DAY ORAL 03/28/16 18:00 04/27/16 17:59 03/30/16 12:28 Famotidine (Pepcid I.v.) 20 mg Q12HR IVP 03/30/16 00:00 04/29/16 00:00 03/30/16 08:51 Heparin Sodium/ Dextrose (Heparin) 500 ml @ 23.025 mls/ hr adjust per protocol IV 03/29/16 19:00 04/28/16 18:59 03/30/16 00:47 Morphine Sulfate (Morphine Sulfate) 2 mg Q4H PRN IVP severe Pain (Pain Scale 7-10) 03/28/16 18:30 04/04/16 18:29 Nitroglycerin (Ntg) 0.4 mg Q5M X 3 DOSES PRN SL Prn Chest Pain 03/28/16 17:30 04/27/16 17:29 Ondansetron HCl (Zofran) 4 mg Q6H PRN IVP Nausea & Vomiting 03/28/16 22:30 04/27/16 22:29 Piperacillin Sod/ Tazobactam Sod/ Sodium Chloride (Zosyn/Sodium Chloride 100ml bag) 100 ml @ 25 mls/hr Q8H IVPB 03/29/16 00:30 04/05/16 00:29 03/30/16 08:50 Polyethylene Glycol (Miralax) 17 gm HSPRN PRN ORAL Constipation 03/28/16 22:30 04/27/16 22:29 Promethazine HCl/ Codeine 5 ml 5 ml Q4H PRN ORAL For Cough 03/29/16 09:00 04/28/16 08:59 03/29/16 10:24 Temazepam (Restoril) 15 mg HSPRN PRN ORAL Insomnia 03/28/16 22:30 04/04/16 22:29 Warfarin Sodium (Coumadin per pharmacy) 1 ea DAILY PRN MISC Per rx protocol 03/29/16 18:30 04/28/16 18:29 Warfarin Sodium (Coumadin) 5 mg COUMADIN ORAL 03/30/16 17:00 03/30/16 17:01 FRANSICO WHITE Mar 30, 2016 14:34
[2016-03-30 16:00] VITALS: BP 132/91
[2016-03-30] MEDS ORDERED: Warfarin Sodium 5mg ORAL SCH (17:00)
--- NOTE | 2016-03-30 19:53 | Cardiology Progress Note ---
Assessment/Plan Assessment/Plan 1. Pneumonia. 2. Left bundle-branch conduction defect. 3. Chest pain, pleuritic in nature. 4. Increased apical echoes on tranthoracic echo thrombus cannot be excluded echo personally reviewed remains difficult to rule out apical thrombus the risk of cva with a possible untreated apical LV thrombus is much higher and potentially more devastating than the risk of anticoagualtion it is my opion that she should be temporarily treated with anticoagualtion as outpt she will need to have a contrast echo to further evaluate the apical area adn to see if need sto continue anticoagualtion. contrast echo is not avaialbe at this hospital i have discussed this with pt and her family at bedside she has not had any bleeding anywhere i have explained need to have fu with box toe cutter and the issue with interaction with food and other meds to pt and dtr at bedside adn the need to be vigilant to avoid fall and to look for blood form any orifice and to go to e.r. if occurs d/w dr hooper 03/29/2016 now on tele sinus coumadin instrution sheet printed by deisi antonio provided for pt in malay to read over heparin coumadin [place] over Subjective Cardiovascular: Denies: chest pain, lightheadedness Respiratory: Reports: cough, Denies: shortness of breath Gastrointestinal/Abdominal: Denies: abdominal pain Genitourinary: Denies: burning Objective Last 24 Hour Vital Signs Date Time Temp Pulse Resp B/P Pulse Ox O2 Delivery O2 Flow Rate FiO2 03/30/16 16:00 97.5 79 19 132/91 93 Room Air 03/30/16 15:03 87 03/30/16 12:04 96.9 70 17 129/83 95 Room Air 03/30/16 08:00 88 03/30/16 08:00 98.2 82 17 137/77 93 Room Air 03/30/16 04:45 66 03/30/16 04:05 98.4 80 19 151/92 95 Room Air 03/30/16 00:06 97.0 84 18 161/86 94 Room Air 03/30/16 00:00 79 03/29/16 20:00 79 03/29/16 20:00 99.5 89 20 147/82 94 Room Air General Appearance: no apparent distress, alert Cardiovascular: normal rate, regular rhythm Respiratory/Chest: lungs clear, normal breath sounds Abdomen: normal bowel sounds, non tender, soft Extremities: no swelling Intake and Output 03/29/16 03/30/16 19:00 07:00 Intake Total 1090 ml 456.175 ml Balance 1090 ml 456.175 ml Intake Oral 830 ml 120 ml IV Total 260 ml 336.175 ml # Voids 4 2 # Bowel Movements 1 Laboratory Tests Test 03/30/16 04:00 White Blood Count 6.9 K/UL (4.8-10.8) Red Blood Count 4.11 M/UL (4.20-5.40) L Hemoglobin 13.5 G/DL (12.0-16.0) Hematocrit 42.4 % (37.0-47.0) Mean Corpuscular Volume 103 FL (80-99) H Mean Corpuscular Hemoglobin 32.7 PG (27.0-31.0) H Mean Corpuscular Hemoglobin Concent 31.8 G/DL (32.0-36.0) L Red Cell Distribution Width 13.1 % (11.6-14.8) Platelet Count 226 K/UL (150-450) Mean Platelet Volume 6.7 FL (6.5-10.1) Neutrophils (%) (Auto) 65.5 % (45.0-75.0) Lymphocytes (%) (Auto) 26.5 % (20.0-45.0) Monocytes (%) (Auto) 6.8 % (1.0-10.0) Eosinophils (%) (Auto) 0.7 % (0.0-3.0) Basophils (%) (Auto) 0.6 % (0.0-2.0) Erythrocyte Sedimentation Rate 100 MM/HR (0-30) H Prothrombin Time 10.2 SEC (9.30-11.50) Prothromb Time International Ratio 1.0 (0.9-1.1) Activated Partial Thromboplast Time 75 SEC (23-33) H Sodium Level 143 mEQ/L (135-145) Potassium Level 3.5 mEQ/L (3.4-4.9) Chloride Level 106 mEQ/L (98-107) Carbon Dioxide Level 23 mEQ/L (20-30) Anion Gap 14 (5-15) Blood Urea Nitrogen 6 mg/dL (7-23) L Creatinine 0.7 mg/dL (0.5-0.9) Estimat Glomerular Filtration Rate > 60 mL/min (>60) Glucose Level 104 mg/dL (74-106) Calcium Level 8.8 mg/dL (8.6-10.2) Phosphorus Level 3.2 mg/dL (2.5-4.8) Magnesium Level 1.9 mg/dL (1.7-2.5) Total Bilirubin 0.5 mg/dL (0.0-1.2) Aspartate Amino Transf (AST/SGOT) 18 U/L (5-40) Alanine Aminotransferase (ALT/SGPT) 21 U/L (3-33) Alkaline Phosphatase 109 U/L (35-104) H C-Reactive Protein, Quantitative 10.7 mg/dL (< 0.5) H Total Protein 7.1 g/dL (6.6-8.7) Albumin 3.3 g/dL (3.5-5.2) L Globulin 3.8 g/dL Albumin/Globulin Ratio 0.8 (1.0-2.7) L ROSE MARY NAYAK Mar 30, 2016 19:53
[2016-03-30 20:00] VITALS: BP 151/99
[2016-03-31] VITALS (7 sets, daily range): BP systolic 131–151; BP diastolic 48–97
[2016-03-31 04:37] LABS: BASOPHILS % (AUTO) 1.1 % (0.0-2.0); EOSINOPHILS % (AUTO) 1.5 % (0.0-3.0); LYMPHOCYTES % (AUTO) 41.8 % (20.0-45.0); MEAN CORPUSCULAR HEMOGLOBIN 32.9 PG (27.0-31.0); MEAN CORPUSCULAR HGB CONC 34.4 G/DL (32.0-36.0); MEAN CORPUSCULAR VOLUME 96 FL (80-99); MEAN PLATELET VOLUME 6.8 FL (6.5-10.1); MONOCYTES % (AUTO) 8.5 % (1.0-10.0); NEUTROPHILS % (AUTO) 47.1 % (45.0-75.0); PLATELET COUNT 256 K/UL (150-450); RED BLOOD COUNT 3.99 M/UL (4.20-5.40); RED CELL DISTRIBUTION WIDTH 10.9 % (11.6-14.8); WHITE BLOOD COUNT 5.6 K/UL (4.8-10.8)
[2016-03-31 04:42] LABS: INR 1.5 (0.9-1.1)
[2016-03-31 04:50] LABS: ALANINE AMINOTRANSFERASE 23 U/L (3-33); ALBUMIN/GLOBULIN RATIO 0.8 (1.0-2.7); ANION GAP 13 (5-15); ASPARTATE AMINO TRANSFERASE 24 U/L (5-40); CALCIUM 8.9 mg/dL (8.6-10.2); CARBON DIOXIDE 25 mEQ/L (20-30); CHLORIDE 106 mEQ/L (98-107); CREATININE 0.8 mg/dL (0.5-0.9); GLOMERULAR FILTRATION RATE > 60 mL/min (>60); HEMOLYSIS 1; POTASSIUM 3.5 mEQ/L (3.4-4.9); SODIUM 144 mEQ/L (135-145); TOTAL PROTEIN 6.9 g/dL (6.6-8.7)
[2016-03-31] MEDS: Docusate 100mg cap ORAL SCH ×3 (08:14→17:24)
[2016-03-31] MEDS: Famotidine 20 MG/ 2ML VIAL IVP SCH ×2 (08:15→20:02)
--- NOTE | 2016-03-31 13:27 | GI Progress Note ---
Assessment/Plan Problems: (1) Hypoalbuminemia ICD Codes: E88.09 - Other disorders of plasma-protein metabolism, not elsewhere classified SNOMED: 071175223 (2) Intractable abdominal pain ICD Codes: R10.9 - Unspecified abdominal pain SNOMED: 96272526, 591254206 (3) Febrile illness, acute ICD Codes: R50.9 - Fever, unspecified SNOMED: 695536308 (4) Pneumonia ICD Codes: J18.9 - Pneumonia, unspecified organism SNOMED: 881606219 Status: stable Status Narrative Discussed with Dr. Johns. Assessment/Plan symptomatic treatment at this time fu Abd U/S zofran prn low fat diet H2 Abx heparin gtt fu labs outpatient GI procedures Subjective Gastrointestinal/Abdominal: Reports: no symptoms Subjective PALACIOS Objective Last 24 Hour Vital Signs Date Time Temp Pulse Resp B/P Pulse Ox O2 Delivery O2 Flow Rate FiO2 03/31/16 12:11 97.9 73 17 131/84 95 Room Air 03/31/16 08:00 67 03/31/16 08:00 96.9 75 17 138/48 92 Room Air 03/31/16 04:21 97.7 68 20 139/83 95 Room Air 03/31/16 04:00 61 03/31/16 00:04 97.5 69 20 139/86 96 Room Air 03/31/16 00:00 62 03/30/16 20:00 97.5 84 19 151/99 94 Room Air 03/30/16 19:05 83 03/30/16 16:00 97.5 79 19 132/91 93 Room Air 03/30/16 15:03 87 Intake and Output 03/30/16 03/31/16 19:00 07:00 Intake Total 990.500 ml 665.975 ml Output Total 460 ml Balance 530.500 ml 665.975 ml Intake Oral 560 ml 250 ml IV Total 430.500 ml 415.975 ml Output Urine Total 460 ml # Voids 2 3 Laboratory Tests Test 03/31/16 04:00 White Blood Count 5.6 K/UL (4.8-10.8) Red Blood Count 3.99 M/UL (4.20-5.40) L Hemoglobin 13.2 G/DL (12.0-16.0) Hematocrit 38.3 % (37.0-47.0) Mean Corpuscular Volume 96 FL (80-99) Mean Corpuscular Hemoglobin 32.9 PG (27.0-31.0) H Mean Corpuscular Hemoglobin Concent 34.4 G/DL (32.0-36.0) Red Cell Distribution Width 10.9 % (11.6-14.8) L Platelet Count 256 K/UL (150-450) Mean Platelet Volume 6.8 FL (6.5-10.1) Neutrophils (%) (Auto) 47.1 % (45.0-75.0) Lymphocytes (%) (Auto) 41.8 % (20.0-45.0) Monocytes (%) (Auto) 8.5 % (1.0-10.0) Eosinophils (%) (Auto) 1.5 % (0.0-3.0) Basophils (%) (Auto) 1.1 % (0.0-2.0) Prothrombin Time 15.0 SEC (9.30-11.50) H Prothromb Time International Ratio 1.5 (0.9-1.1) H Activated Partial Thromboplast Time 85 SEC (23-33) H Sodium Level 144 mEQ/L (135-145) Potassium Level 3.5 mEQ/L (3.4-4.9) Chloride Level 106 mEQ/L (98-107) Carbon Dioxide Level 25 mEQ/L (20-30) Anion Gap 13 (5-15) Blood Urea Nitrogen 7 mg/dL (7-23) Creatinine 0.8 mg/dL (0.5-0.9) Estimat Glomerular Filtration Rate > 60 mL/min (>60) Glucose Level 111 mg/dL (74-106) H Calcium Level 8.9 mg/dL (8.6-10.2) Total Bilirubin 0.4 mg/dL (0.0-1.2) Aspartate Amino Transf (AST/SGOT) 24 U/L (5-40) Alanine Aminotransferase (ALT/SGPT) 23 U/L (3-33) Alkaline Phosphatase 107 U/L (35-104) H Total Protein 6.9 g/dL (6.6-8.7) Albumin 3.2 g/dL (3.5-5.2) L Globulin 3.7 g/dL Albumin/Globulin Ratio 0.8 (1.0-2.7) L Height (Feet): 5 Height (Inches): 2.00 Weight (Pounds): 141 General Appearance: no apparent distress, alert Cardiovascular: normal rate Respiratory/Chest: normal breath sounds, no respiratory distress Abdominal Exam: normal bowel sounds, non tender, soft Lynn Wolfe N.P. Mar 31, 2016 13:27
--- NOTE | 2016-03-31 15:15 | Pulmonology Progress Note ---
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 coumadine started, INR 1.5 will dc once inr > 2 Subjective ROS Limited/Unobtainable: No Interval Events: no new complains Allergies: Coded Allergies: No Known Allergies (Unverified , 03/27/16) Objective Last 24 Hour Vital Signs Date Time Temp Pulse Resp B/P Pulse Ox O2 Delivery O2 Flow Rate FiO2 03/31/16 12:11 97.9 73 17 131/84 95 Room Air 03/31/16 12:00 75 03/31/16 08:00 67 03/31/16 08:00 96.9 75 17 138/48 92 Room Air 03/31/16 04:21 97.7 68 20 139/83 95 Room Air 03/31/16 04:00 61 03/31/16 00:04 97.5 69 20 139/86 96 Room Air 03/31/16 00:00 62 03/30/16 20:00 97.5 84 19 151/99 94 Room Air 03/30/16 19:05 83 03/30/16 16:00 97.5 79 19 132/91 93 Room Air Intake and Output 03/30/16 03/31/16 19:00 07:00 Intake Total 990.500 ml 665.975 ml Output Total 460 ml Balance 530.500 ml 665.975 ml Intake Oral 560 ml 250 ml IV Total 430.500 ml 415.975 ml Output Urine Total 460 ml # Voids 2 3 General Appearance: WD/WN HEENT: normocephalic, anicteric Respiratory/Chest: chest wall non-tender, lungs clear Cardiovascular: normal peripheral pulses, normal rate Abdomen: normal bowel sounds Extremities: no cyanosis Skin: no rash Microbiology Date/Time Source Procedure Growth Status 03/30/16 10:10 Sputum Gram Stain - Final Resulted 03/30/16 10:10 Sputum Sputum Culture Pending Resulted Laboratory Tests 03/31/16 04:00: White Blood Count 5.6, Red Blood Count 3.99L, Hemoglobin 13.2, Hematocrit 38.3, Mean Corpuscular Volume 96, Mean Corpuscular Hemoglobin 32.9H, Mean Corpuscular Hemoglobin Concent 34.4, Red Cell Distribution Width 10.9L, Platelet Count 256, Mean Platelet Volume 6.8, Neutrophils (%) (Auto) 47.1, Lymphocytes (%) (Auto) 41.8, Monocytes (%) (Auto) 8.5, Eosinophils (%) (Auto) 1.5, Basophils (%) (Auto ) 1.1, Prothrombin Time 15.0H, Prothromb Time International Ratio 1.5H, Activated Partial Thromboplast Time 85H, Sodium Level 144, Potassium Level 3.5, Chloride Level 106, Carbon Dioxide Level 25, Anion Gap 13, Blood Urea Nitrogen 7 , Creatinine 0.8, Estimat Glomerular Filtration Rate > 60, Glucose Level 111H, Calcium Level 8.9, Total Bilirubin 0.4, Aspartate Amino Transf (AST/SGOT) 24, Alanine Aminotransferase (ALT/SGPT) 23, Alkaline Phosphatase 107H, Total Protein 6.9, Albumin 3.2L, Globulin 3.7, Albumin/Globulin Ratio 0.8L Current Medications Medications (Trade) Dose Ordered Sig/Adwoa Route PRN Reason Start Time Stop Time Status Last Admin Dose Admin Acetaminophen (Tylenol) 650 mg Q4H PRN ORAL Mild Pain/Temp > 100.5 03/31/16 10:00 04/30/16 09:59 03/31/16 10:19 Al Hydroxide/Mg Hydroxide (Mylanta II) 30 ml Q6H PRN ORAL dyspepsia 03/28/16 22:30 04/27/16 22:29 Dextrose (Dextrose 50%) STAT PRN IV Hypoglycemia 03/28/16 22:30 04/27/16 22:29 Diphenhydramine HCl (Benadryl) 25 mg Q6H PRN ORAL Itching/Pruritis 03/28/16 22:30 04/27/16 22:29 Docusate Sodium (Colace) 100 mg THREE TIMES A DAY ORAL 03/28/16 18:00 04/27/16 17:59 03/31/16 12:33 Famotidine (Pepcid I.v.) 20 mg Q12HR IVP 03/30/16 00:00 04/29/16 00:00 03/31/16 08:15 Heparin Sodium/ Dextrose (Heparin) 500 ml @ 23.025 mls/ hr adjust per protocol IV 03/29/16 19:00 04/28/16 18:59 03/30/16 20:16 Morphine Sulfate (Morphine Sulfate) 2 mg Q4H PRN IVP severe Pain (Pain Scale 7-10) 03/28/16 18:30 04/04/16 18:29 Nitroglycerin (Ntg) 0.4 mg Q5M X 3 DOSES PRN SL Prn Chest Pain 03/28/16 17:30 04/27/16 17:29 Ondansetron HCl (Zofran) 4 mg Q6H PRN IVP Nausea & Vomiting 03/28/16 22:30 04/27/16 22:29 Piperacillin Sod/ Tazobactam Sod/ Sodium Chloride (Zosyn/Sodium Chloride 100ml bag) 100 ml @ 25 mls/hr Q8H IVPB 03/29/16 00:30 04/05/16 00:29 03/31/16 08:14 Polyethylene Glycol (Miralax) 17 gm HSPRN PRN ORAL Constipation 03/28/16 22:30 04/27/16 22:29 Promethazine HCl/ Codeine 5 ml 5 ml Q4H PRN ORAL For Cough 03/29/16 09:00 04/28/16 08:59 03/29/16 10:24 Temazepam (Restoril) 15 mg HSPRN PRN ORAL Insomnia 03/28/16 22:30 04/04/16 22:29 Warfarin Sodium (Coumadin per pharmacy) 1 ea DAILY PRN MISC Per rx protocol 03/29/16 18:30 04/28/16 18:29 Warfarin Sodium (Coumadin) 2 mg COUMADIN ORAL 03/31/16 17:00 03/31/16 17:01 DEBORA PEREZ Mar 31, 2016 15:15
[2016-03-31] MEDS ORDERED: Warfarin Sodium 2mg ORAL SCH (17:00)
[2016-03-31] MEDS: Heparin 25,000u/D5W 500ml 500 ML IV SCH (17:29)
[2016-03-31] MEDS ORDERED: Tubing IV Secondary IV ONE ×2 (17:32→17:45)
[2016-03-31] MEDS ORDERED: D5 1/2NS 1000ml IV ONE (17:32)
[2016-03-31] MEDS ORDERED: NS 275ml ONE (17:45)
--- NOTE | 2016-03-31 20:04 | Cardiology Progress Note ---
Assessment/Plan Assessment/Plan 1. Pneumonia. 2. Left bundle-branch conduction defect. 3. Chest pain, pleuritic in nature. 4. Increased apical echoes on tranthoracic echo thrombus cannot be excluded echo personally reviewed remains difficult to rule out apical thrombus the risk of cva with a possible untreated apical LV thrombus is much higher and potentially more devastating than the risk of anticoagualtion it is my opion that she should be temporarily treated with anticoagualtion as outpt she will need to have a contrast echo to further evaluate the apical area adn to see if need sto continue anticoagualtion. contrast echo is not avaialbe at this hospital i have discussed this with pt and her family at bedside she has not had any bleeding anywhere i have explained need to have fu with lamination technician and the issue with interaction with food and other meds to pt and dtr at bedside adn the need to be vigilant to avoid fall and to look for blood form any orifice and to go to e.r. if occurs d/w dr hooper 03/29/2016 now on tele sinus coumadin instrution sheet printed by deisi antonio provided for pt in persian to read over 03/30/2016 heparin coumadin kingsley over hgb is stalbe inr is movign up bp is elelvated will start on arb low dose Subjective Cardiovascular: Denies: lightheadedness Gastrointestinal/Abdominal: Denies: abdominal pain, blood in stool Genitourinary: Denies: burning, hematuria Objective Last 24 Hour Vital Signs Date Time Temp Pulse Resp B/P Pulse Ox O2 Delivery O2 Flow Rate FiO2 03/31/16 16:00 97.5 78 18 131/92 97 Room Air 03/31/16 16:00 74 03/31/16 12:11 97.9 73 17 131/84 95 Room Air 03/31/16 12:00 75 03/31/16 08:00 67 03/31/16 08:00 96.9 75 17 138/48 92 Room Air 03/31/16 04:21 97.7 68 20 139/83 95 Room Air 03/31/16 04:00 61 03/31/16 00:04 97.5 69 20 139/86 96 Room Air 03/31/16 00:00 62 General Appearance: no apparent distress, alert Neck: supple Cardiovascular: normal rate, regular rhythm Respiratory/Chest: lungs clear Abdomen: normal bowel sounds, non tender, soft Extremities: no swelling Intake and Output 03/30/16 03/31/16 19:00 07:00 Intake Total 990.500 ml 665.975 ml Output Total 460 ml Balance 530.500 ml 665.975 ml Intake Oral 560 ml 250 ml IV Total 430.500 ml 415.975 ml Output Urine Total 460 ml # Voids 2 3 Laboratory Tests Test 03/31/16 04:00 White Blood Count 5.6 K/UL (4.8-10.8) Red Blood Count 3.99 M/UL (4.20-5.40) L Hemoglobin 13.2 G/DL (12.0-16.0) Hematocrit 38.3 % (37.0-47.0) Mean Corpuscular Volume 96 FL (80-99) Mean Corpuscular Hemoglobin 32.9 PG (27.0-31.0) H Mean Corpuscular Hemoglobin Concent 34.4 G/DL (32.0-36.0) Red Cell Distribution Width 10.9 % (11.6-14.8) L Platelet Count 256 K/UL (150-450) Mean Platelet Volume 6.8 FL (6.5-10.1) Neutrophils (%) (Auto) 47.1 % (45.0-75.0) Lymphocytes (%) (Auto) 41.8 % (20.0-45.0) Monocytes (%) (Auto) 8.5 % (1.0-10.0) Eosinophils (%) (Auto) 1.5 % (0.0-3.0) Basophils (%) (Auto) 1.1 % (0.0-2.0) Prothrombin Time 15.0 SEC (9.30-11.50) H Prothromb Time International Ratio 1.5 (0.9-1.1) H Activated Partial Thromboplast Time 85 SEC (23-33) H Sodium Level 144 mEQ/L (135-145) Potassium Level 3.5 mEQ/L (3.4-4.9) Chloride Level 106 mEQ/L (98-107) Carbon Dioxide Level 25 mEQ/L (20-30) Anion Gap 13 (5-15) Blood Urea Nitrogen 7 mg/dL (7-23) Creatinine 0.8 mg/dL (0.5-0.9) Estimat Glomerular Filtration Rate > 60 mL/min (>60) Glucose Level 111 mg/dL (74-106) H Calcium Level 8.9 mg/dL (8.6-10.2) Total Bilirubin 0.4 mg/dL (0.0-1.2) Aspartate Amino Transf (AST/SGOT) 24 U/L (5-40) Alanine Aminotransferase (ALT/SGPT) 23 U/L (3-33) Alkaline Phosphatase 107 U/L (35-104) H Total Protein 6.9 g/dL (6.6-8.7) Albumin 3.2 g/dL (3.5-5.2) L Globulin 3.7 g/dL Albumin/Globulin Ratio 0.8 (1.0-2.7) L Microbiology Date/Time Source Procedure Growth Status 03/30/16 10:10 Sputum Gram Stain - Final Resulted 03/30/16 10:10 Sputum Sputum Culture Pending Resulted ROSE MARY NAYAK Mar 31, 2016 20:04
[2016-04-01] VITALS: BP 146/83
[2016-04-01 04:00] VITALS: BP 140/83
[2016-04-01 04:11] LABS: BASOPHILS % (AUTO) 0.6 % (0.0-2.0); EOSINOPHILS % (AUTO) 1.2 % (0.0-3.0); LYMPHOCYTES % (AUTO) 30.9 % (20.0-45.0); MEAN CORPUSCULAR HGB CONC 34.6 G/DL (32.0-36.0); MEAN CORPUSCULAR VOLUME 95 FL (80-99); MEAN PLATELET VOLUME 6.5 FL (6.5-10.1); MONOCYTES % (AUTO) 9.2 % (1.0-10.0); NEUTROPHILS % (AUTO) 58.2 % (45.0-75.0); PLATELET COUNT 300 K/UL (150-450); RED BLOOD COUNT 3.98 M/UL (4.20-5.40); RED CELL DISTRIBUTION WIDTH 10.9 % (11.6-14.8)
[2016-04-01 04:17] LABS: INR 2.1 (0.9-1.1); PROTHROMBIN TIME 21.6 SEC (9.30-11.50)
[2016-04-01 04:24] LABS: ALANINE AMINOTRANSFERASE 31 U/L (3-33); ALBUMIN/GLOBULIN RATIO 0.7 (1.0-2.7); ANION GAP 13 (5-15); ASPARTATE AMINO TRANSFERASE 29 U/L (5-40); CARBON DIOXIDE 24 mEQ/L (20-30); CHLORIDE 110 mEQ/L (98-107); CREATININE 0.8 mg/dL (0.5-0.9); GLOMERULAR FILTRATION RATE > 60 mL/min (>60); HEMOLYSIS 3; POTASSIUM 3.7 mEQ/L (3.4-4.9); SODIUM 147 mEQ/L (135-145); TOTAL PROTEIN 6.9 g/dL (6.6-8.7)
[2016-04-01] MEDS ORDERED: ACETAMINOPHEN120 MG ORAL (06:58)
[2016-04-01] MEDS ORDERED: BENADRYL25 M3 PO (07:02)
[2016-04-01] MEDS ORDERED: DOCUSATE SODIU100 M2 ORAL (07:03)
[2016-04-01] MEDS ORDERED: HEPARIN-D525000 UNI1 IV (07:04)
[2016-04-01] MEDS ORDERED: LOSARTAN POTASS25 M1 PO (07:04)
[2016-04-01] MEDS ORDERED: FAMOTIDINE10 MG/1 ML IV (07:04)
[2016-04-01] MEDS ORDERED: MORPHINE SU4 MG/1 ML IVP (07:05)
[2016-04-01] MEDS ORDERED: ZOSYN 3.373.375 GM/1 IVPB (07:06)
[2016-04-01] MEDS ORDERED: NITROGLYCERIN0.4 MG SL (07:06)
[2016-04-01 08:00] VITALS: BP 136/95
[2016-04-01] MEDS: Docusate 100mg cap ORAL SCH (08:31)
[2016-04-01] MEDS ORDERED: Losartan 25mg tab ORAL SCH (09:00)
[2016-04-01 09:27] VITALS: BP 136/95
[2016-04-01] MEDS: Famotidine 20 MG/ 2ML VIAL IVP SCH (09:27)
--- NOTE | 2016-04-01 11:42 | GI Progress Note ---
Assessment/Plan Problems: (1) Hypoalbuminemia ICD Codes: E88.09 - Other disorders of plasma-protein metabolism, not elsewhere classified SNOMED: 413838158 (2) Intractable abdominal pain ICD Codes: R10.9 - Unspecified abdominal pain SNOMED: 30962123, 956926181 (3) Febrile illness, acute ICD Codes: R50.9 - Fever, unspecified SNOMED: 129060484 (4) Pneumonia ICD Codes: J18.9 - Pneumonia, unspecified organism SNOMED: 741620612 Status: stable Status Narrative Discussed with Dr. Johns. Assessment/Plan symptomatic treatment at this time fu Abd U/S zofran prn low fat diet H2 Abx heparin gtt fu labs outpatient GI procedures Subjective Gastrointestinal/Abdominal: Reports: no symptoms Subjective PALACIOS Objective Last 24 Hour Vital Signs Date Time Temp Pulse Resp B/P Pulse Ox O2 Delivery O2 Flow Rate FiO2 04/01/16 09:27 136/95 04/01/16 08:00 97.3 81 17 136/95 93 Room Air 04/01/16 04:00 97.2 82 18 140/83 95 Room Air 04/01/16 04:00 62 04/01/16 00:00 97.0 80 18 146/83 93 Room Air 04/01/16 00:00 80 03/31/16 21:00 92 18 151/79 Nasal Cannula 4.0 100 03/31/16 20:00 98.2 82 18 146/97 95 Room Air 03/31/16 20:00 73 03/31/16 16:00 97.5 78 18 131/92 97 Room Air 03/31/16 16:00 74 03/31/16 12:11 97.9 73 17 131/84 95 Room Air 03/31/16 12:00 75 Intake and Output 03/31/16 04/01/16 19:00 07:00 Intake Total 918.275 ml 691.100 ml Balance 918.275 ml 691.100 ml Intake Oral 540 ml 240 ml IV Total 378.275 ml 451.100 ml # Voids 1 Laboratory Tests Test 04/01/16 04:00 White Blood Count 7.0 K/UL (4.8-10.8) Red Blood Count 3.98 M/UL (4.20-5.40) L Hemoglobin 13.1 G/DL (12.0-16.0) Hematocrit 37.9 % (37.0-47.0) Mean Corpuscular Volume 95 FL (80-99) Mean Corpuscular Hemoglobin 33.0 PG (27.0-31.0) H Mean Corpuscular Hemoglobin Concent 34.6 G/DL (32.0-36.0) Red Cell Distribution Width 10.9 % (11.6-14.8) L Platelet Count 300 K/UL (150-450) Mean Platelet Volume 6.5 FL (6.5-10.1) Neutrophils (%) (Auto) 58.2 % (45.0-75.0) Lymphocytes (%) (Auto) 30.9 % (20.0-45.0) Monocytes (%) (Auto) 9.2 % (1.0-10.0) Eosinophils (%) (Auto) 1.2 % (0.0-3.0) Basophils (%) (Auto) 0.6 % (0.0-2.0) Prothrombin Time 21.6 SEC (9.30-11.50) H Prothromb Time International Ratio 2.1 (0.9-1.1) H Activated Partial Thromboplast Time 82 SEC (23-33) H Sodium Level 147 mEQ/L (135-145) H Potassium Level 3.7 mEQ/L (3.4-4.9) Chloride Level 110 mEQ/L (98-107) H Carbon Dioxide Level 24 mEQ/L (20-30) Anion Gap 13 (5-15) Blood Urea Nitrogen 7 mg/dL (7-23) Creatinine 0.8 mg/dL (0.5-0.9) Estimat Glomerular Filtration Rate > 60 mL/min (>60) Glucose Level 117 mg/dL (74-106) H Calcium Level 9.0 mg/dL (8.6-10.2) Total Bilirubin 0.3 mg/dL (0.0-1.2) Aspartate Amino Transf (AST/SGOT) 29 U/L (5-40) Alanine Aminotransferase (ALT/SGPT) 31 U/L (3-33) Alkaline Phosphatase 109 U/L (35-104) H Total Protein 6.9 g/dL (6.6-8.7) Albumin 3.0 g/dL (3.5-5.2) L Globulin 3.9 g/dL Albumin/Globulin Ratio 0.7 (1.0-2.7) L Height (Feet): 5 Height (Inches): 2.00 Weight (Pounds): 141 General Appearance: no apparent distress, alert Cardiovascular: normal rate Respiratory/Chest: normal breath sounds, no respiratory distress Abdominal Exam: normal bowel sounds, non tender, soft Extremities: normal range of motion Lynn Wolfe N.P. Apr 01, 2016 11:42
--- NOTE | 2016-04-01 13:04 | Pulmonology Progress Note ---
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 coumadine started, INR 1.5 will dc once inr > 2 Subjective ROS Limited/Unobtainable: No Respiratory: Reports: dyspnea at rest, dyspnea on exertion, pleuritic pain, productive cough, shortness of breath, sputum, wheezing Cardiovascular: Reports: chest pain, palpitations Allergies: Coded Allergies: No Known Allergies (Unverified , 03/27/16) Objective Last 24 Hour Vital Signs Date Time Temp Pulse Resp B/P Pulse Ox O2 Delivery O2 Flow Rate FiO2 04/01/16 09:27 136/95 04/01/16 08:00 97.3 81 17 136/95 93 Room Air 04/01/16 04:00 97.2 82 18 140/83 95 Room Air 04/01/16 04:00 62 04/01/16 00:00 97.0 80 18 146/83 93 Room Air 04/01/16 00:00 80 03/31/16 21:00 92 18 151/79 Nasal Cannula 4.0 100 03/31/16 20:00 98.2 82 18 146/97 95 Room Air 03/31/16 20:00 73 03/31/16 16:00 97.5 78 18 131/92 97 Room Air 03/31/16 16:00 74 Intake and Output 03/31/16 04/01/16 19:00 07:00 Intake Total 918.275 ml 691.100 ml Balance 918.275 ml 691.100 ml Intake Oral 540 ml 240 ml IV Total 378.275 ml 451.100 ml # Voids 1 General Appearance: no acute distress HEENT: normocephalic, atraumatic, PERRL Respiratory/Chest: chest wall non-tender, decreased breath sounds, accessory muscle use, rhonchi Breasts: no masses Cardiovascular: normal peripheral pulses, normal rate, regular rhythm, no JVD Abdomen: normal bowel sounds, no organomegaly, non distended Genitourinary: normal external genitalia Extremities: no cyanosis Skin: no rash Neurologic/Psychiatric: damage appraiser II-XII grossly normal, no motor/sensory deficits Microbiology Date/Time Source Procedure Growth Status 03/30/16 10:10 Sputum Gram Stain - Final Complete 03/30/16 10:10 Sputum Sputum Culture - Final NORMAL UPPER RESPIRATORY ANGELA AT 48 ... Complete Laboratory Tests 04/01/16 04:00: White Blood Count 7.0, Red Blood Count 3.98L, Hemoglobin 13.1, Hematocrit 37.9, Mean Corpuscular Volume 95, Mean Corpuscular Hemoglobin 33.0H, Mean Corpuscular Hemoglobin Concent 34.6, Red Cell Distribution Width 10.9L, Platelet Count 300, Mean Platelet Volume 6.5, Neutrophils (%) (Auto) 58.2, Lymphocytes (%) (Auto) 30.9, Monocytes (%) (Auto) 9.2, Eosinophils (%) (Auto) 1.2, Basophils (%) (Auto ) 0.6, Prothrombin Time 21.6H, Prothromb Time International Ratio 2.1H, Activated Partial Thromboplast Time 82H, Sodium Level 147H, Potassium Level 3.7 , Chloride Level 110H, Carbon Dioxide Level 24, Anion Gap 13, Blood Urea Nitrogen 7, Creatinine 0.8, Estimat Glomerular Filtration Rate > 60, Glucose Level 117H, Calcium Level 9.0, Total Bilirubin 0.3, Aspartate Amino Transf (AST/ SGOT) 29, Alanine Aminotransferase (ALT/SGPT) 31, Alkaline Phosphatase 109H, Total Protein 6.9, Albumin 3.0L, Globulin 3.9, Albumin/Globulin Ratio 0.7L DEBORA PEREZ Apr 01, 2016 13:04
[2016-04-01] MEDS ORDERED: Warfarin Sodium 2mg ORAL ONE (17:00)
--- NOTE | 2016-04-02 08:51 | Discharge Summary ---
Discharge Summary Hospital Course Date of Admission Mar 27, 2016 at 20:16 Date of Discharge Apr 01, 2016 at 10:40 Admitting Diagnosis sepsis, left bundle branch block HPI Bruna Kaiser is a 55 year old female who was admitted on Mar 27, 2016 at 20:16 for Sepsis,Left Bundle Branch Block Hospital Course [id number] Discharge Discharge Disposition Patient was discharged to Contracted facility Discharge Diagnoses: Milvia Newman NP Apr 02, 2016 08:51
--- NOTE | 2016-04-03 21:27 | Discharge Summary 2 SIG ---
DATE OF ADMISSION: 03/27/2016 DATE OF DISCHARGE: 04/01/2016 CONSULTANTS: 1. Chidi Johns M.D. 2. Marvin North M.D. 3. Abraham Coates M.D. BRIEF HOSPITAL COURSE: The patient is a 55-year-old female with history of hypertension, presented to ED complaining of increased abdominal pain and vomiting. Also, reported recent increased cough and difficulty breathing with intermittent productive cough. Her chest x-ray showed right lung infiltrate. Dr. North was consulted. The patient's influenza screen was negative. She has leukocytosis and fever and meets criteria of sepsis. She was started empirically on Zosyn. Dr. Coates was consulted for abnormal EKG as EKG showed left bundle-branch conduction defect with secondary ST-segment changes. The patient had an echocardiogram, preliminary report, ejection fraction of 50%. Unfortunately, unknown if electrocardiographic changes were new findings or not. She was noted to have some kind of abnormalities by primary care physician who wants her to be referred to a retail planning manager supposedly to occur this month, but has not yet been established. Echocardiogram showed increased apical echoes, difficult to rule out apical thrombose. The risk of CVA with possible untreated apical left ventricular thrombus is much higher and potentially more devastating than the risk of anticoagulation. She will need to have a contrast echo to further evaluate the apical area and to see if need to stop or continue anticoagulation. Contrast echocardiogram is not available at this facility. It was discussed with the patient and her family at bedside. She was given heparin on bridge with Coumadin. Blood pressure was elevated and was started on low-dose angiotensin-receptor phuong. Dr. Johns was consulted for abdominal pain and was given a symptomatic treatment. She was eventually discharged to [facility]. FINAL DIAGNOSES: 1. Pneumonia. 2. Left ventricular mural thrombus. 3. Left bundle-branch block. 4. Hypertension. 5. Hypoalbuminemia. 6. Intractable abdominal pain. Benoit Lugo M.D. I have been assigned to dictate discharge summary on this account and I was not involved in the patient's management. Milvia Newman N.P. DR: VICKI JOB#: [id number] CC: EVELYN
--- NOTE | 2016-04-05 14:55 | Cardiology Report ---
APPROVED REPORT EXAM: Two-dimensional and M-mode echocardiogram with Doppler and color Doppler. INDICATION Left ventricular function M-Mode DIMENSIONS IVSd0.9 (0.7-1.1cm)Left Atrium (MM)2.8 (1.6-4.0cm) LVDd4.3 (3.5-5.6cm)Aortic Root2.8 (2.0-3.7cm) PWd0.9 (0.7-1.1cm)Aortic Cusp Exc.1.4 (1.5-2.0cm) LVDs2.7 (2.5-4.0cm) PWs1.3 cm Normal left ventricular chamber size, systolic function and wall motion. Left ventricular ejection fraction estimated to be 50%. No evidence of left ventricular hypertrophy. No evidence of pericardial fat or effusion. Moderate left atrial enlargement by 2D. Right cardiac chamber sizes are within normal limits. Focal aortic valve sclerosis with adequate cusp excursion Mildly thickened mitral valve leaflets with normal excursion. Mild mitral annulus and aortic root calcification. Pulmonic valve not well visualized. Normal tricuspid valve structure. IVC is normal in size with physiologic collapse. Increased echo on some but not all apical images noted in the apex the wall motion appears to be normal in this area and color flow is not segregated to suggest a filling defect such neverthe less thrombus in this area cannot be excluded consider optison study in future A color flow and spectral Doppler study was performed and revealed: Trace aortic regurgitation. Moderate mitral regurgitation. Left ventricular diastolic dysfunction grade 1. Moderate tricuspid regurgitation. Tricuspid systolic velocities suggests peak right ventricular systolic pressure of 44 mmHg Consistent with mild pulmonary hypertension.
--- NOTE | 2016-04-05 14:56 | Diagnostic Imaging Report ---
Indications: Elevated liver function tests Technique: Transabdominal real-time grayscale and duplex Doppler imaging of the upper abdomen and retroperitoneum was performed. Findings: Comparison: None. Liver normal size and surface contour, parenchymal echogenicity. No focal lesions. Gallbladder unremarkable. No intraluminal stones or sludge. No mural thickening or adjacent fluid collections. Sonographic Marin sign negative.. Bile ducts normal caliber. Common bile duct 3 mm. Pancreas unremarkable. Spleen unremarkable. Right kidney unremarkable. Left kidney unremarkable. Abdominal aorta, intrahepatic portion of inferior vena cava patent, normal caliber. Duplex Doppler imaging demonstrates antegrade flow in splenic, portal, hepatic veins. No ascites. IMPRESSION: Negative abdominal ultrasound.
== END 2016-04-01 10:40 | disposition short-term general hospital (02) | DRG 139 ==
LOC: EMR 18:40 → 2W 20:16 → EDBEDREQ 20:36 → 4W 03-28 17:15 → 2E 03-29 21:47
DX: J18.9 Pneumonia, unspecified organism (principal); I51.3 Intracardiac thrombosis, not elsewhere classified; I10 Essential (primary) hypertension; I44.7 Left bundle-branch block, unspecified; E78.5 Hyperlipidemia, unspecified; R10.9 Unspecified abdominal pain; E88.09 Other disorders of plasma-protein metabolism, not elsewhere classified
CPT/HCPCS: 36415; 71010; 76700; 80053; 80061; 81003; 82150; 82248; 82550; 82553; 83605; 83690; 83735; 83880; 84100; 84484; 85025; 85610; 85651; 85730; 86140; 86710; 87040; 87070; 87205; 93005; 93306; J8499

== ENCOUNTER 2016-11-05 11:49 | Emergency (ER) | payer MEDICAID ==
[~2016-11-05] VITALS: Ht 157.5 cm; Wt 63.5 kg
[~2016-11-05 11:49] MED LIST: ACETAMINOPHEN120 MG ORAL; BENADRYL25 M3 PO; DOCUSATE SODIU100 M2 ORAL; FAMOTIDINE10 MG/1 ML IV; HEPARIN-D525000 UNI1 IV; HYDROCHLOROTH12.5 M2 ORAL; LIPITOR40 MG ORAL; LOSARTAN POTASS25 M1 PO; MORPHINE SU4 MG/1 ML IVP; NITROGLYCERIN0.4 MG SL; NKM; ZOSYN 3.373.375 GM/1 IVPB
[2016-11-05] MEDS ORDERED: FUROSEMIDE40 MG ORAL (12:14)
[2016-11-05] MEDS ORDERED: ASPIR 8181 MG ORAL (12:14)
[2016-11-05] MEDS ORDERED: LISINOPRIL5 MG ORAL (12:14)
[2016-11-05] MEDS ORDERED: SPIRONOLACTONE1 EACH ORAL (12:14)
[2016-11-05] MEDS ORDERED: CARVEDILOL3.125 MG ORAL (12:14)
[2016-11-05 12:19] VITALS: BP 137/70
[2016-11-05] MEDS ORDERED: PredniSONE 20mg tab ORAL ONE (12:30)
[2016-11-05] MEDS ORDERED: PREDNISONE20 MG ORAL (13:07)
[2016-11-05] MEDS ORDERED: TRIAMCINOLONE A80 G1 TP (13:08)
[2016-11-05 13:14] VITALS: BP 137/70
--- NOTE | 2016-11-05 19:05 | Emergency Room Report ---
History of Present Illness General Chief Complaint: Skin Rash/Abscess Source: Medical Record Present Illness HPI The patient is a 56-year-old female presenting for rash and cough. She states that she had pneumonia several months prior which was treated the cough has not resolved. She denies any fever or chills. Rash began one week prior and is described as red and itchy. She denies any pain. She has noticed a rash around her lips, neck, upper chest, and arms. She denies using any new products or clothing. She denies any known allergies. She states this has never happened in the past. She denies any other symptoms including nausea, vomiting, fever, chills, hemoptysis, shortness of breath Allergies: Coded Allergies: No Known Allergies (Unverified , 03/27/16) Patient History Past Medical History: see triage record Pertinent Family History: none Last Menstrual Period: Post Now: No : 7 Para: 7 Reviewed Nursing Documentation: PMH: Agreed, PSxH: Agreed Nursing Documentation-PMH Past Medical History Deferred: Pt Cognitively Impaired Hx Cardiac Problems: Yes - HTN, Hyperlipidemia Hx Hypertension: Yes - HYPERLIPIDEMIA Hx Cancer: No Hx Gastrointestinal Problems: No Hx Neurological Problems: No Review of Systems All Other Systems: negative except mentioned in HPI Physical Exam Vital Signs Date Time Temp Pulse Resp B/P Pulse Ox O2 Delivery O2 Flow Rate FiO2 11/05/16 11:58 97.9 68 18 137/70 98 Sp02 EP Interpretation: reviewed, normal General Appearance: no apparent distress, alert, GCS 15, non-toxic Head: normocephalic, atraumatic Eyes: bilateral eye PERRL, bilateral eye normal inspection ENT: hearing grossly normal, normal pharynx, no angioedema, normal voice Respiratory: chest non-tender, lungs clear, normal breath sounds, speaking full sentences Musculoskeletal: back normal, gait/station normal, normal range of motion, non- tender Neurologic: alert, oriented x3, responsive, motor strength/tone normal, sensory intact, speech normal Skin: normal turgor, rash - erythematous macular rash around lips, anterior neck, posterior neck, elbows, and forearms. Lymphatic: no adenopathy Medical Decision Making PA Attestation Dr. Byrd is my supervising physician. Patient management was discussed with my supervising physician Diagnostic Impression: Primary Impression: Eczema Qualified Codes: L30.9 - Dermatitis, unspecified ER Course The patient is a 56-year-old female presenting for rash and cough Ddx considered include but not limited to insect bite, contact dermatitis, eczema, cellulitis, PNA, bronchitis, among others PE: afebrile. NAD HEENT exam is unremarkable. No lymphadenopathy. No lesions of oropharynx. There is an erythematous macular rash periorally, on the neck, elbows, and forearms. Lungs are clear to auscultation bilaterally Chest x-ray unremarkable The patient will be discharged home with a prescription for both oral steroids and topical steroids. She is to followup with dermatology in primary doctor. ER precautions given Chest X-Ray Diagnostic Results Chest X-Ray Diagnostic Results : Chest X-Ray Ordered: Yes # of Views/Limited/Complete: 1 View Indication: Other - cough EP Interpretation: Yes Interpretation: no consolidation, no effusion, no pneumothorax, no acute cardiopulmonary disease Impression: No acute disease Interpreting ER Provider: Frederic Byrd MD PA Scribe Text I am acting as scribe for my supervising physician. My supervising physician's interpretation of the chest xrays are there is no consolidation, no effusion, no acute cardiopulmonary disease, no pneumothorax Last Vital Signs Date Time Temp Pulse Resp B/P Pulse Ox O2 Delivery O2 Flow Rate FiO2 11/05/16 13:14 97.9 18 137/70 98 11/05/16 11:58 68 Status: improved Disposition: HOME, SELF-CARE Condition: Improved Scripts Triamcinolone Acetonide (TRIAMCINOLONE ACETONIDE) 80 Gm Oint...g. 80 GM TP BID, #80 GM Prov: ARIEL PABON 11/05/16 Prednisone* (PREDNISONE*) 20 Mg Tablet 40 MG ORAL DAILY, #8 TAB Prov: ARIEL PABON P.A. 11/05/16 Patient Instructions: Rash Additional Instructions: I discussed my findings with the patient. All questions and concerns have been answered. Treatment and medication compliance have been addressed. I advised the patient that they need to follow up with PMD in 3-5 days. Return to ED if symptoms worsen, new symptoms arise, or if needed for any reason. Patient verbalized understanding of discharge instructions. ARIEL PABON Nov 05, 2016 19:05
--- NOTE | 2016-11-06 10:30 | Diagnostic Imaging Report ---
Indication: Cough Technique: XRAY CHEST 1 V Comparison: 03/29/16 Findings: The cardiomediastinal silhouette is within normal limits. There is no focal consolidation, pneumothorax or pleural effusion. Osseous structures demonstrate no acute abnormality. Impression: No acute cardiopulmonary disease.
== END 2016-11-05 13:14 | disposition home or self-care (01) ==
LOC: EMR 12:30
DX: L30.9 Dermatitis, unspecified (principal); R05 Cough; I10 Essential (primary) hypertension; E78.5 Hyperlipidemia, unspecified; Z87.01 Personal history of pneumonia (recurrent)
CPT/HCPCS: 71010; 99284